=== PATIENT | female | born 1965 | race Caucasian/White ===

== ENCOUNTER 2016-09-18 11:27 | Inpatient (IN) | payer OTHER ==
[~2016-09-18] VITALS: Ht 162.6 cm; Wt 62.3 kg
[2016-09-18] VITALS (10 sets, daily range): BP systolic 100–144; BP diastolic 63–89; PULSE 92–122; RESP 16–18; TEMP 97.6–98.2; O2SAT 92–96
[~2016-09-18 11:27] MED LIST: ALBU0.086 NEB; ALBU2.5I INH; EFFE150C PO; FLON0.053; IPRA0.02 NEB; LEVA500T PO; MEDR4PAK3 PO
--- NOTE | 2016-09-18 11:54 | PD ---
HPI Chief Complaint: Respiratory Symptoms Time Seen by Provider: 11:53 Travel History International Travel<30 days: No Contact w/Intl Traveler<30days: No Traveled to known affect area: No History of Present Illness HPI 51-year-old female came to the emergency room with history of respiratory distress, cough and fever that has been going on for past 1 and a half week. Patient says that she did a course of by mouth Levaquin but symptoms have not improved. She has history of bronchiectasis and has had these symptoms many times in the past. Usually she has ended up requiring IV antibiotics. She said that she is allergic to a number of them and usually only IV Levaquin helps. She took some Tylenol before coming to the emergency room. She looked sick and in distress. Patient was tachycardic and oxygen saturation of 92% on room air. Patient does not take any oxygen at home. FORMERLY [facility] Past Medical History Narrative Medical List of her past medical, surgical, social and family history was reviewed from the nursing note. Arthritis: Yes Asthma: Yes Anxiety: Yes Depression: Yes Heart Rhythm Problems: No Cancer: No Cardiovascular Problems: No High Cholesterol: No Chest Pain: No Congestive Heart Failure: No COPD: Yes (BRONCHIECTASIS) Cerebrovascular Accident: No Diabetes: No Diminished Hearing: No Endocrine: No GERD: No Glaucoma: No Genitourinary: No Hepatitis: No Hiatal Hernia: No Hypertension: No Immune Disorder: Yes (rheumatoid arthritis) Kidney Stones: No Musculoskeletal: No Neurologic: No Psychiatric: No Reproductive: No Respiratory: Yes Migraines: No Pneumonia: Yes Renal Failure: No Seizures: No Sleep Apnea: No Thyroid Disease: No Ulcer: No ?: Not : 3 Para: 3 Tubal Ligation: Yes Past Surgical History Abdominal Surgery: Yes (appendectomy) AICD: No Appendectomy: Yes ( A CHILD) Cardiac Surgery: No Endocrine Surgery: No Eye Surgery: No Genitourinary Surgery: No Gynecologic Surgery: Yes (tubaligaton) Joint Replacement: No Oral Surgery: Yes (tonsillectomy nasal polyps removed 3 times) Pacemaker: No Thoracic Surgery: Yes (bronchoscopy) Other Surgery: Yes (SINUS NASAL POLYPS REMOVED) Social History Alcohol Use: Yes (occ) Tobacco Use: No Substance Use: No Allergies-Medications (Allergen,Severity, Reaction): Coded Allergies: Aspirin (Verified Allergy, Severe, shock, 09/18/16) Cephalosporins (Verified Allergy, Severe, Anaphylaxis, 09/18/16) Erythromycin (Verified Allergy, Severe, Anaphylaxis, 09/18/16) Penicillin (Verified Allergy, Severe, Anaphylaxis, 09/18/16) Sulfa (Verified Allergy, Severe, Anaphylaxis, 09/18/16) Uncoded Allergies: NSAIDS (Allergy, Severe, Anaphylaxis, 08/09/12) Comments List of her allergies reviewed from the nursing note. Reported Meds & Prescriptions Reported Meds & Active Scripts Active Reported Breo Ellipta Inh (Fluticasone/Vilanterol) 100-25 Mcg/Act Inh 1 Puff INH DAILY Use daily at the same time. Albuterol Neb (Albuterol Sulfate) 2.5 Mg/0.5 Ml Neb 2.5 Mg NEB BID Note: The Albuterol Sulfate Inhalation Solution is concentrated and must be diluted. Read complete instructions carefully before using. Ventolin Hfa 18 GM Inh (Albuterol Sulfate) 90 Mcg/Act Aer 2 Puff INH Q4H PRN Flonase Nasal [place] (Fluticasone Nasal [place]) 50 Mcg/Act [place] 50 Mcg EACH NARE BID Effexor XR 24 HR (Venlafaxine HCl) 150 Mg Cap 150 Mg PO DAILY Narrative Medication List of her home medications reviewed from the nursing note. Review of Systems Except as stated in HPI: all other systems reviewed are Neg Physical Exam Narrative GENERAL: Awake, alert, moderate distress SKIN: Warm and dry. HEAD: Atraumatic. Normocephalic. EYES: Pupils equal and round. No scleral icterus. No injection or drainage. ENT: No nasal bleeding or discharge. Mucous membranes pink and moist. NECK: Trachea midline. No JVD. CARDIOVASCULAR: Regular rate and rhythm. No murmur appreciated. RESPIRATORY: Coarse crackles bilaterally with end expiratory wheeze. Mild to moderate respiratory distress with accessory muscles used GASTROINTESTINAL: Abdomen soft, non-tender, nondistended. Hepatic and splenic margins not palpable. MUSCULOSKELETAL: No obvious deformities. No clubbing. No cyanosis. No edema. NEUROLOGICAL: Awake and alert. No obvious cranial nerve deficits. Motor grossly within normal limits. Normal speech. PSYCHIATRIC: Appropriate mood and affect; insight and judgment normal. Data Data Last Documented VS Vital Signs Date Time Temp Pulse Resp B/P Pulse Ox O2 Delivery O2 Flow Rate FiO2 09/18/16 14:05 100 16 111/63 94 Nasal Cannula 1 3/14/17 11:30 98.0 Orders Complete Blood Count With Diff (09/18/16 12:03) Basic Metabolic Panel (Bmp) (09/18/16 12:03) Blood Culture (09/18/16 12:03) Iv Access Insert/Monitor (09/18/16 12:03) Ecg Monitoring (09/18/16 12:03) Oximetry (09/18/16 12:03) Oxygen Administration (09/18/16 12:03) Chest, Single Ap (09/18/16 12:03) Sodium Chloride 0.9% Flush (Ns Flush) (09/18/16 12:15) Methylprednisolone So Succ Inj (Solumedr (09/18/16 12:15) Albuterol-Ipratropium Neb (Duoneb Neb) (09/18/16 12:15) Lactic Acid (09/18/16 12:03) Levofloxacin 500 Mg Premix Inj (Levaquin (09/18/16 12:15) Sodium Chlor 0.9% 1000 Ml Inj (Ns 1000 M (09/18/16 13:57) Sodium Chlor 0.9% 1000 Ml Inj (Ns 1000 M (09/18/16 13:57) Admit Order (Ed Use Only) (09/18/16 14:09) Labs Laboratory Tests Test 09/18/16 13:11 White Blood Count 20.4 TH/MM3 Red Blood Count 4.91 MIL/MM3 Hemoglobin 12.1 GM/DL Hematocrit 38.8 % Mean Corpuscular Volume 78.9 FL Mean Corpuscular Hemoglobin 24.6 PG Mean Corpuscular Hemoglobin 31.2 % Concent Red Cell Distribution Width 17.3 % Platelet Count 451 TH/MM3 Mean Platelet Volume 7.7 FL Neutrophils (%) (Auto) 86.3 % Lymphocytes (%) (Auto) 9.5 % Monocytes (%) (Auto) 2.9 % Eosinophils (%) (Auto) 0.6 % Basophils (%) (Auto) 0.7 % Neutrophils # (Auto) 17.7 TH/MM3 Lymphocytes # (Auto) 1.9 TH/MM3 Monocytes # (Auto) 0.6 TH/MM3 Eosinophils # (Auto) 0.1 TH/MM3 Basophils # (Auto) 0.1 TH/MM3 CBC Comment AUTO DIFF Differential Comment AUTO DIFF CONFIRMED Platelet Estimate NORMAL Platelet Morphology Comment NORMAL Red Cell Morphology Comment NORMAL Sodium Level 141 MEQ/L Potassium Level 3.6 MEQ/L Chloride Level 104 MEQ/L Carbon Dioxide Level 24.7 MEQ/L Anion Gap 12 MEQ/L Blood Urea Nitrogen 15 MG/DL Creatinine 0.61 MG/DL Estimat Glomerular Filtration 104 ML/MIN Rate Random Glucose 94 MG/DL Lactic Acid Level 3.2 mmol/L Calcium Level 8.6 MG/DL MDM Medical Decision Making Medical Screen Exam Complete: Yes Emergency Medical Condition: Yes Medical Record Reviewed: Yes Differential Diagnosis Pneumonia, COPD exacerbation, bronchitis Narrative Course 12:36 PM patient has been ordered for nebs 3 and IV Solu-Medrol. Have ordered IV Levaquin and blood tests and chest x-ray. Waiting for these to be done and I will reassess her. 1:24 PM x-ray shows multiple right sided consolidation with possible cavitary lesions. Awaiting for the blood test. Patient will require admission. I was told by the nurse that patient had her flu test done at her doctor's office this morning which was negative. I've canceled our influenza test here that I had ordered. 1:59 PM blood test results are back and white count is significantly elevated with a left shift and lactic acid is elevated as well. Patient was ordered IV fluid as per the sepsis protocol. Awaiting for the admitting physician to call back for admission. Critical Care Narrative Aggregate critical care time was 45 minutes. Time to perform other separately billable procedures was not included in the critical care time. My time did not include minutes spent treating any other patients simultaneously or on activities that did not directly contribute to the patient's treatment. The services I provided to this patient were to treat and/or prevent clinically significant deterioration that could result in: Respiratory distress, hypoxia, pneumonia, sepsis I provided critical care services requiring my management, as noted below: Chart data review, documentation time, medication orders and management, vital sign assessments/reviewing monitor data, ordering and reviewing lab tests, ordering and interpreting/reviewing x-rays and diagnostic studies, care of the patient and discussion of the patient with the admitting physicians. Procedures EKG Prior to Arrival: No Sepsis Criteria SIRS Criteria (2 or more): Heart rate over 90, WBC > 05230, < 4000 or > 10% bands Sepsis Criteria (SIRS+source): Infect source susp/known Severe Sepsis (+one): Lactate >2 Diagnosis Primary Impression: Sepsis Qualified Code: A41.9 - Sepsis, due to unspecified organism Additional Impressions: Pneumonia Qualified Code: J18.9 - Pneumonia of right lung due to infectious organism, unspecified part of lung Respiratory distress Admitting Information Admitting Physician Requests: it Candelario Solano MD Sep 18, 2016 11:54
[2016-09-18] MEDS ORDERED: methylPREDNISolone SOD SUCC 125 MG/2 ML VIAL IVP ONE (12:15)
[2016-09-18] MEDS ORDERED: LEVOFLOXACIN 500 MG PREMIX INJ 100 ML IV ONE (12:15)
[2016-09-18] MEDS ORDERED: SODIUM CHLORIDE 0.9% FLUSH 5 ML FLUSH IVF PRN (12:15)
[2016-09-18] MEDS: RESP: ALBUTEROL 2.5 MG/IPRATROPIUM 0.5 MG NEB (SCH) INH (12:30)
--- NOTE | 2016-09-18 13:03 | RADHPO ---
EXAM DATE/TIME: 09/18/2016 12:40 [place] COMPARISON: CHEST PA & LAT, November 14, 2015, 19:09. INDICATIONS: Short of breath. MEDICAL HISTORY: Chronic obstructive pulmonary disease. SURGICAL HISTORY: None. ENCOUNTER: Initial ACUITY: 2 weeks PAIN SCORE: 0/10 LOCATION: Bilateral chest FINDINGS: The heart size is normal. There is some patchy density seen at the lateral right upper lung. There is also some patchy density identified at the right mid and lower lung. There is some questionable c avitary change at the right base. There is some cavitary change in the right upper lung. The left u pper lung appears grossly clear. Significant effusion is not clearly seen. CONCLUSION: Patchy areas of consolidation and possible cavitary changes throughout the right lung. Sunil Dong MD on September 18, 2016 at 12:55 Board Certified Radiologist. This report was verified electronically.
[2016-09-18] MEDS ORDERED: FLUT1SPR5 EACH NARE (13:10)
[2016-09-18] MEDS ORDERED: VENTAER INH (13:10)
[2016-09-18] MEDS ORDERED: FLUT1INH INH (13:10)
[2016-09-18] MEDS ORDERED: ALBU.5I NEB (13:10)
[2016-09-18] MEDS ORDERED: EFFE150C PO (13:10)
[2016-09-18 13:33] LABS: AUTOMATED NEUTROPHIL # 17.7 TH/MM3 (1.8-7.7); BASOPHIL # 0.1 TH/MM3 (0-0.2); BASOPHIL % 0.7 % (0.0-2.0); EOSINOPHIL # 0.1 TH/MM3 (0-0.4); EOSINOPHIL % 0.6 % (0.0-4.0); HEMATOCRIT 38.8 % (35.0-46.0); LYMPH % 9.5 % (9.0-44.0); LYMPHOCYTE # 1.9 TH/MM3 (1.0-4.8); MEAN CELL VOLUME 78.9 FL (80.0-100.0); MEAN CORPUSCULAR HEMOGLOBIN 24.6 PG (27.0-34.0); MEAN CORPUSCULAR HGB CONC 31.2 % (32.0-36.0); MONO % 2.9 % (0.0-8.0); NEUT % 86.3 % (16.0-70.0); PLATELET COUNT 451 TH/MM3 (150-450); RED BLOOD COUNT 4.91 MIL/MM3 (4.00-5.30); RED CELL DISTRIBUTION WIDTH 17.3 % (11.6-17.2); WHITE BLOOD COUNT 20.4 TH/MM3 (4.0-11.0)
[2016-09-18 13:34] LABS: HEMO FLAGS AUTO DIFF
[2016-09-18 13:39] LABS: POTASSIUM 3.6 MEQ/L (3.5-5.1)
[2016-09-18 13:42] LABS: BICARBONATE 24.7 MEQ/L (21.0-32.0)
[2016-09-18] MEDS ORDERED: SODIUM CHLOR 0.9% 1000 ML INJ 800 ML IV ONE (13:57)
[2016-09-18] MEDS ORDERED: SODIUM CHLOR 0.9% 1000 ML INJ 1,000 ML IV ONE (13:57)
[2016-09-18 14:03] LABS: PLATELET ESTIMATE SMEAR NORMAL (NORMAL); PLATELET MORPHOLOGY NORMAL (NORMAL); SCAN/DIFF AUTO DIFF CONFIRMED
[2016-09-18] MEDS ORDERED: ACETAMINOPHEN 325 MG TAB PO PRN (14:30)
[2016-09-18] MEDS ORDERED: NALOXONE HCL 0.4 MG/ML AMP IV PRN (14:30)
[2016-09-18] MEDS ORDERED: ONDANSETRON HCL 4 MG/2 ML VIAL IVP PRN (14:30)
[2016-09-18] MEDS ORDERED: SODIUM CHLORIDE 0.9% FLUSH 5 ML FLUSH FLUSH PRN (14:30)
--- NOTE | 2016-09-18 14:30 | HHI.HP ---
[facility] Service [facility] Primary Care Physician Clementine Montgomery MD Admission Diagnosis sepsis, pneumonia, respiratory distress Diagnoses: (1) Severe sepsis (2) Pneumonia (3) Bronchiectasis Chief Complaint: coough production sputum Travel History International Travel<30 Days: No Contact w/Intl Traveler <30 Da: No Traveled to Known Affected Are: No Sepsis Criteria SIRS Criteria (2 or more): Heart rate over 90, WBC > 22442, < 4000 or > 10% bands Sepsis Criteria (SIRS+source): Infect source susp/known Severe Sepsis (+one): Lactate >2 Criteria Outcome: Meets sepsis criteria History of Present Illness 51 year-old female with a history of bronchiectasis and recurrent pneumonia came to the ED for evaluation of SOB/respiratory distress and cough production of brown sputum x 1 week duration along with febrile episode. Patient states, she completed a ten-day course of by mouth Levaquin 09/16/16 and a 5 day course of Medrol pack 09/11/16. She recently returned from a road trip on 09/16/16 after a weekend in [place]. Prior to coming to the ED patient reported febrile episode for which she took Tylenol. Chest x-ray finding of patchy area of consolidation and patient will elevated WBC. She was tachycardic with oxygen saturation 92% on room air arrival in the ED. She denies any GI bleed, hemoptysis, hematuria. Review of Systems Other 12 systems reviewed and are negative except for the ones mentioned in history of present illness Past Family Social History Past Medical History Bronchiectasis Asthma for 20 years Depression which is controlled well Recurrent pneumonia Restless leg syndrome, that has resolved. Rheumatoid arthritis Past Surgical History Bilateral sinus surgery apparently twice Bilateral tubal ligation Tonsillectomy Appendectomy Reported Medications Breo Ellipta Inh (Fluticasone/Vilanterol) 100-25 Mcg/Act Inh 1 Puff INH DAILY Use daily at the same time. Albuterol Neb (Albuterol Sulfate) 2.5 Mg/0.5 Ml Neb 2.5 Mg NEB BID Note: The Albuterol Sulfate Inhalation Solution is concentrated and must be diluted. Read complete instructions carefully before using. Ventolin Hfa 18 GM Inh (Albuterol Sulfate) 90 Mcg/Act Aer 2 Puff INH Q4H PRN Flonase Nasal [place] (Fluticasone Nasal [place]) 50 Mcg/Act [place] 50 Mcg EACH NARE BID Effexor XR 24 HR (Venlafaxine HCl) 150 Mg Cap 150 Mg PO DAILY Allergies: Coded Allergies: Aspirin (Verified Allergy, Severe, shock, 09/18/16) Cephalosporins (Verified Allergy, Severe, Anaphylaxis, 09/18/16) Erythromycin (Verified Allergy, Severe, Anaphylaxis, 09/18/16) Penicillin (Verified Allergy, Severe, Anaphylaxis, 09/18/16) Sulfa (Verified Allergy, Severe, Anaphylaxis, 09/18/16) Uncoded Allergies: NSAIDS (Allergy, Severe, Anaphylaxis, 08/09/12) Family History Mother has diabetes. Father had CAD requiring CABG. Social History She has never been a smoker. 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 Physical Exam Vital Signs Vital Signs Date Time Temp Pulse Resp B/P Pulse Ox O2 Delivery O2 Flow Rate FiO2 09/18/16 12:10 97 16 94 Room Air 09/18/16 12:05 94 Room Air 09/18/16 12:05 16 94 Room Air 09/18/16 11:30 98.0 110 16 133/89 92 Physical Exam GENERAL: This is a well-nourished, well-developed patient, in no apparent distress. SKIN: No rashes, ecchymoses or lesions. Cool and dry. HEAD: Atraumatic. Normocephalic. No temporal or scalp tenderness. EYES: Pupils equal round and reactive. Extraocular motions intact. No scleral icterus. No injection or drainage. ENT: Nose without bleeding, purulent drainage or septal hematoma. Throat without erythema, tonsillar hypertrophy or exudate. Uvula midline. Airway patent. NECK: Trachea midline. No JVD or lymphadenopathy. Supple, nontender, no meningeal signs. CARDIOVASCULAR: Regular rate and rhythm without murmurs, gallops, or rubs. RESPIRATORY: Clear to auscultation. Breath sounds equal bilaterally. No wheezes , rales, or rhonchi. GASTROINTESTINAL: Abdomen soft, non-tender, nondistended. No hepato-splenomegaly , or palpable masses. No guarding. MUSCULOSKELETAL: Extremities without clubbing, cyanosis, or edema. No joint tenderness, effusion, or edema noted. No calf tenderness. Negative Homans sign bilaterally. NEUROLOGICAL: Awake and alert. Cranial nerves II through XII intact. Motor and sensory grossly within normal limits. Five out of 5 muscle strength in all muscle groups. Normal speech. Laboratory Laboratory Tests Test 09/18/16 13:11 White Blood Count 20.4 Red Blood Count 4.91 Hemoglobin 12.1 Hematocrit 38.8 Mean Corpuscular Volume 78.9 Mean Corpuscular Hemoglobin 24.6 Mean Corpuscular Hemoglobin 31.2 Concent Red Cell Distribution Width 17.3 Platelet Count 451 Mean Platelet Volume 7.7 Neutrophils (%) (Auto) 86.3 Lymphocytes (%) (Auto) 9.5 Monocytes (%) (Auto) 2.9 Eosinophils (%) (Auto) 0.6 Basophils (%) (Auto) 0.7 Neutrophils # (Auto) 17.7 Lymphocytes # (Auto) 1.9 Monocytes # (Auto) 0.6 Eosinophils # (Auto) 0.1 Basophils # (Auto) 0.1 CBC Comment AUTO DIFF Differential Comment AUTO DIFF CONFIRMED Platelet Estimate NORMAL Platelet Morphology Comment NORMAL Red Cell Morphology Comment NORMAL Sodium Level 141 Potassium Level 3.6 Chloride Level 104 Carbon Dioxide Level 24.7 Anion Gap 12 Blood Urea Nitrogen 15 Creatinine 0.61 Estimat Glomerular Filtration 104 Rate Random Glucose 94 Lactic Acid Level 3.2 Calcium Level 8.6 Date/Time Procedure Status Source Growth 09/18/16 13:11 Aerobic Blood Culture Received Blood Peripheral Pending 09/18/16 13:11 Anaerobic Blood Culture Received Blood Peripheral Pending Result Diagram: 09/18/16 1311 09/18/16 1311 Assessment and Plan Problem List: (1) Severe sepsis ICD Code: A41.9 Status: Acute (2) Pneumonia ICD Code: J18.9 Status: Acute (3) Bronchiectasis ICD Code: J47.9 Status: Chronic Assessment and Plan 51-year-old female with Severe sepsis: Meets sepsis criteria, Heart rate over 90, WBC > 36647, < 4000 or > 10% bands, Lactate >2. Source from Pneumonia. S/p Levaquin IV 500mg x 1 in the ED. Will start Levaquin 750mg IV daily on 09/19/16. Will check Flu A and B as well as urinary pneumococcal and Legionella antigens pending culture report Community-acquired pneumonia: Chest x-ray noted and reviewed with finding of patchy area of consolidations; continue with Levaquin IV 750mg daily Bronchiectasis:Resume Breo and start DuoNeb scheduled and PRN as well as Solu Medrol 40mg IV Q12H; Patient received Solu Medrol 125mg IV x 1 in the ED. Start Mucinex Anxiety: Resume Effexor DVT prophylaxis: B-SCDs Code Status Full code Discussed Condition With Patient, , ED physician Physician Certification 2 Midnight Certification Type: Admission for Inpatient Services Order for Inpatient Services The services are ordered in accordance with Medicare regulations or non- Medicare payer requirements, as applicable. In the case of services not specified as inpatient-only, they are appropriately provided as inpatient services in accordance with the 2-midnight benchmark. Estimated LOS (days): 2 days is the estimated time the patient will need to remain in the hospital, assuming treatment plan goals are met and no additional complications. Post-Hospital Plan: Not yet determined Problem Qualifiers (1) Pneumonia: Qualified Code: J18.9 - Pneumonia of right lung due to infectious organism, unspecified part of lung Antony Momin MD Sep 18, 2016 14:30
[2016-09-18] MEDS: ACETAMINOPHEN 325 MG TAB PO PRN (17:35)
[2016-09-18] MEDS: RESP: ALBUTEROL 2.5 MG/IPRATROPIUM 0.5 MG NEB (SCH) NEB (19:23)
[2016-09-18] MEDS: LACTOBACILLUS ACIDOPHILUS TAB PO SCH (21:45)
[2016-09-18] MEDS: TEMAZEPAM 15 MG CAP PO PRN (21:45)
[2016-09-18] MEDS: methylPREDNISolone SOD SUCC 40 MG/1 ML VIAL IV PUSH SCH (21:45)
[2016-09-18] MEDS: guaiFENesin E.R. 600 MG TAB PO SCH (21:45)
[2016-09-18] MEDS: SODIUM CHLORIDE 0.9% FLUSH 5 ML FLUSH FLUSH SCH (21:45)
[2016-09-19] VITALS (7 sets, daily range): BP systolic 94–142; BP diastolic 62–74; PULSE 80–102; RESP 16–21; TEMP 96.4–97.3; O2SAT 92–95
[2016-09-19 06:37] LABS: AUTOMATED NEUTROPHIL # 14.3 TH/MM3 (1.8-7.7); EOSINOPHIL % 0.1 % (0.0-4.0); HEMATOCRIT 31.4 % (35.0-46.0); LYMPH % 5.2 % (9.0-44.0); LYMPHOCYTE # 0.8 TH/MM3 (1.0-4.8); MEAN CELL VOLUME 77.9 FL (80.0-100.0); MEAN CORPUSCULAR HEMOGLOBIN 25.6 PG (27.0-34.0); MEAN CORPUSCULAR HGB CONC 32.8 % (32.0-36.0); MONO % 1.3 % (0.0-8.0); NEUT % 93.4 % (16.0-70.0); PLATELET COUNT 435 TH/MM3 (150-450); RED BLOOD COUNT 4.03 MIL/MM3 (4.00-5.30); RED CELL DISTRIBUTION WIDTH 16.9 % (11.6-17.2); WHITE BLOOD COUNT 15.3 TH/MM3 (4.0-11.0)
[2016-09-19 06:40] LABS: CHLORIDE 108 MEQ/L (98-107); POTASSIUM 4.1 MEQ/L (3.5-5.1); SODIUM (NA) 143 MEQ/L (136-145)
[2016-09-19 06:48] LABS: HEMO FLAGS DIFF FINAL
[2016-09-19 06:49] LABS: ANION GAP 9 MEQ/L (5-15); BICARBONATE 25.8 MEQ/L (21.0-32.0); BLOOD UREA NITROGEN 15 MG/DL (7-18)
[2016-09-19 06:51] LABS: ALT (GPT) 25 U/L (10-53)
[2016-09-19 06:52] LABS: AST (GOT) 10 U/L (15-37); GLOMERULAR FILTRATION RATE 122 ML/MIN (>89)
--- NOTE | 2016-09-19 06:52 | HHI.PR ---
Subjective Remarks Still coughing. She states her breathing is stable. She was admitted to [facility] medical service yesterday and when it was found out she was a [facility] plan patient I was called this morning to follow her. Admission note was done by [facility] physician. Objective Vitals Vital Signs Date Time Temp Pulse Resp B/P Pulse Ox O2 Delivery O2 Flow Rate FiO2 09/19/16 00:00 96.5 80 16 94/62 92 09/18/16 20:00 94 Nasal Cannula 1.00 09/18/16 20:00 97.6 92 16 100/63 94 09/18/16 19:22 92 Nasal Cannula 1.00 09/18/16 16:00 98.2 96 18 113/68 96 09/18/16 15:05 98 16 123/70 94 Nasal Cannula 1 09/18/16 15:00 95 Nasal Cannula 1.00 09/18/16 14:15 16 94 Nasal Cannula 1 09/18/16 14:05 100 16 111/63 94 Nasal Cannula 1 09/18/16 13:05 122 16 127/75 93 Nasal Cannula 1 09/18/16 12:15 116 16 144/87 93 1 09/18/16 12:10 97 16 94 Room Air 09/18/16 12:05 94 Room Air 09/18/16 12:05 16 94 Room Air 09/18/16 11:30 98.0 110 16 133/89 92 09/18/16 09/18/16 09/19/16 15:00 23:00 07:00 Intake Total 100 ml 2040 ml 180 ml Balance 100 ml 2040 ml 180 ml Intake Oral 240 ml 180 ml IV Total 100 ml 1800 ml # Voids 1 1 # Bowel Movements 0 0 Result Diagram: 09/18/16 1311 09/19/16 0501 Other Results Lab today pending. Laboratory Tests Test 09/18/16 09/18/16 09/19/16 13:11 17:00 05:01 White Blood Count 20.4 TH/MM3 Red Blood Count 4.91 MIL/MM3 Hemoglobin 12.1 GM/DL Hematocrit 38.8 % Mean Corpuscular Volume 78.9 FL Mean Corpuscular Hemoglobin 24.6 PG Mean Corpuscular Hemoglobin 31.2 % Concent Red Cell Distribution Width 17.3 % Platelet Count 451 TH/MM3 Mean Platelet Volume 7.7 FL Neutrophils (%) (Auto) 86.3 % Lymphocytes (%) (Auto) 9.5 % Monocytes (%) (Auto) 2.9 % Eosinophils (%) (Auto) 0.6 % Basophils (%) (Auto) 0.7 % Neutrophils # (Auto) 17.7 TH/MM3 Lymphocytes # (Auto) 1.9 TH/MM3 Monocytes # (Auto) 0.6 TH/MM3 Eosinophils # (Auto) 0.1 TH/MM3 Basophils # (Auto) 0.1 TH/MM3 CBC Comment AUTO DIFF Differential Comment AUTO DIFF CONFIRMED Platelet Estimate NORMAL Platelet Morphology Comment NORMAL Red Cell Morphology Comment NORMAL Sodium Level 141 MEQ/L 143 MEQ/L Potassium Level 3.6 MEQ/L 4.1 MEQ/L Chloride Level 104 MEQ/L 108 MEQ/L Carbon Dioxide Level 24.7 MEQ/L Anion Gap 12 MEQ/L Blood Urea Nitrogen 15 MG/DL Creatinine 0.61 MG/DL Estimat Glomerular Filtration 104 ML/MIN Rate Random Glucose 94 MG/DL Lactic Acid Level 3.2 mmol/L 1.3 mmol/L Calcium Level 8.6 MG/DL Imaging Last Impressions Chest X-Ray 09/18/16 1203 Signed Impressions: Service Date/Time: Sunday, September 18, 2016 12:40 - CONCLUSION: Patchy areas of consolidation and possible cavitary changes throughout the right lung. Sunil Dong MD Objective Remarks Exam: Pleasant female in no distress HEENT: pupils equal, no scleral icterus, mouth negative Neck: No JVD Heart: RRR with no murmurs Lungs: Rhonchi right base and occasional wheezing throughout Abdomen: Soft, nontender, no masses Extremities: No edema Neuro: Negative A/P Assessment and Plan Assessment: --Pneumonia--patient has multiple drug allergies to antibiotics (penicillins, cephalosporins; sulfa) --Bronchiectasis --Sepsis--Her WBC was 20,000 yesterday but some of that could have been from outpatient steroid use --Asthma Plan: Consult infectious disease for appropriate antibiotic choice. Patient was started on Levaquin by the [facility] physician yesterday, however she had just completed a 10 day course of it on 09-16-16. Continue nebulizer treatments and Solu-Medrol.. Continue SCD's/ADAM hose for DVT prophylaxis. Mike Hopkins MD Sep 19, 2016 06:52
[2016-09-19 06:53] LABS: TOTAL BILIRUBIN ADULT 0.3 MG/DL (0.2-1.0)
[2016-09-19 06:54] LABS: ALKALINE PHOSPHATASE 97 U/L (45-117)
[2016-09-19] MEDS: RESP: ALBUTEROL 2.5 MG/IPRATROPIUM 0.5 MG NEB (SCH) NEB ×3 (07:28→19:15)
[2016-09-19] MEDS: ACETAMINOPHEN/HYDROcodone 325 MG/5 MG TAB PO PRN (09:28)
[2016-09-19] MEDS: LACTOBACILLUS ACIDOPHILUS TAB PO SCH ×2 (09:28→21:07)
[2016-09-19] MEDS: guaiFENesin E.R. 600 MG TAB PO SCH ×2 (09:29→21:08)
[2016-09-19] MEDS: VENLAFAXINE HCL XR 75 MG CAP PO SCH (09:29)
[2016-09-19] MEDS: FLUTICASONE 100 MCG/VILANTEROL 25 MCG INHALER INH SCH (09:30)
[2016-09-19] MEDS: SODIUM CHLORIDE 0.9% FLUSH 5 ML FLUSH FLUSH SCH ×2 (09:31→21:09)
[2016-09-19] MEDS: methylPREDNISolone SOD SUCC 40 MG/1 ML VIAL IV PUSH SCH ×2 (09:31→21:09)
[2016-09-19] MEDS ORDERED: LEVOFLOXACIN 750 MG PREMIX INJ 150 ML IV SCH (13:00)
[2016-09-19] MEDS: ACETAMINOPHEN 325 MG TAB PO PRN (13:23)
[2016-09-19] MEDS: AZTREONAM INJ 1,000 MG in SODIUM CHLORIDE 0.9% INJ 100 ML IV SCH ×2 (13:32→22:44)
--- NOTE | 2016-09-19 17:02 | PD.CONS ---
History of Present Illness Service Infectious disease Consult Requested By Dr Aria Hopkins Reason for Consult Evaluate patient with pneumonia, bronchiectasis, has multiple antibiotic allergies Primary Care Physician Clementine Montgomery MD Diagnoses: History of Present Illness Patient seen and examined. Records reviewed. Patient is a 51-year-old female, with known bronchiectasis, admitted to the hospital for evaluation of shortness of breath. Patient apparently has been having congestion and cough probably over the last 10 days or so. She has had previous problem with infections and usually her blueprinter will give her Levaquin and her symptoms would improve. She was given Levaquin about 10 days ago, as well as a Medrol Dosepak. However her symptoms did not improved and this weekend which would be about for 5 days ago she started getting shortness of breath, and she had episodes of fever. She is bringing up a lot of sputum and they're colored grayish and yellowish at times. Her shortness of breath was not improving so she presented to the hospital for further evaluation and treatment. Admission she has not been febrile. Her WBC is elevated. Today patient states she feels better as far as her shortness of breath. Chest x-ray showed infiltrates on the right lung with some suggestion of cavitary lesions in the lower lung field. The last time she had hospitalization was last year and she had bilateral infiltrates at that time. Patient has multiple antibiotic allergies and states that her reactions of been anaphylaxis. Infectious disease consultation has been requested to evaluate the patient. Review of Systems Constitutional: COMPLAINS OF: Fever, Chills Eyes: DENIES: Eye pain Ears, nose, mouth, throat: DENIES: Nasal discharge, Oral lesions, Throat pain, Ear Pain, Running Nose Respiratory: COMPLAINS OF: Cough, Wheezing, Sputum production, Shortness of breath Cardiovascular: DENIES: Chest pain, Palpitations, Syncope Gastrointestinal: DENIES: Abdominal pain, Diarrhea, Nausea, Vomiting Genitourinary: DENIES: Urinary frequency, Dysuria Musculoskeletal: DENIES: Joint pain, Joint Swelling Integumentary: DENIES: Rash Neurologic: DENIES: Headache Psychiatric: DENIES: Confusion, Hallucinations Past Family Social History Allergies: Coded Allergies: Aspirin (Verified Allergy, Severe, shock, 09/18/16) Cephalosporins (Verified Allergy, Severe, Anaphylaxis, 09/18/16) Erythromycin (Verified Allergy, Severe, Anaphylaxis, 09/18/16) Penicillin (Verified Allergy, Severe, Anaphylaxis, 09/18/16) Sulfa (Verified Allergy, Severe, Anaphylaxis, 09/18/16) Uncoded Allergies: NSAIDS (Allergy, Severe, Anaphylaxis, 08/09/12) Past Medical History Bronchiectasis Asthma for 20 years Depression which is controlled well Recurrent pneumonia Restless leg syndrome, that has resolved. Rheumatoid arthritis Past Surgical History Bilateral sinus surgery apparently twice Bilateral tubal ligation Tonsillectomy Appendectomy Active Ordered Medications Tylenol [place] Albuterol Azactam Mucinex Lactinex Levaquin Solu-Medrol Zofran Restoril Effexor Social History She has never been a smoker. 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 Physical Exam Vital Signs Vital Signs Date Time Temp Pulse Resp B/P Pulse Ox O2 Delivery O2 Flow Rate FiO2 09/19/16 16:00 96.4 100 18 113/74 94 09/19/16 12:00 97.1 88 18 96/69 95 09/19/16 08:00 97.3 95 18 119/72 94 09/19/16 08:00 Nasal Cannula 1.00 09/19/16 07:28 92 Nasal Cannula 1.00 09/19/16 00:00 96.5 80 16 94/62 92 09/18/16 20:00 94 Nasal Cannula 1.00 09/18/16 20:00 97.6 92 16 100/63 94 09/18/16 19:22 92 Nasal Cannula 1.00 Physical Exam GENERAL: This is a well-nourished, well-developed female, awake and alert, in no apparent distress. SKIN: Cool and dry. No generalized rash or ecchymosis. HEAD: Atraumatic. Normocephalic. No temporal or scalp tenderness. EYES: [place] conjunctivae. Pupils equal round and reactive. Extraocular motions intact. No scleral icterus. No injection or drainage. ENT: Nose without bleeding, or purulent drainage. Moist oral mucosa, no oral thrush. Throat without erythema, tonsillar hypertrophy or exudate. Uvula midline. Airway patent. NECK: Trachea midline. No JVD or lymphadenopathy. Supple, nontender, no meningeal signs. CARDIOVASCULAR: Regular rate and rhythm without murmurs, gallops, or rubs. RESPIRATORY: Decreased breath sounds on the left side. She has scattered rhonchi and rales on the right side. Increased vocal fremitus on the whole right lung, with E to A changes GASTROINTESTINAL: Abdomen soft, non-tender, nondistended. Bowel sounds are present and normoactive. No organomegaly. No guarding. MUSCULOSKELETAL: Extremities without clubbing, cyanosis, or edema. No joint tenderness, effusion, or edema noted. No calf tenderness. Negative Homans sign bilaterally. NEUROLOGICAL: Awake and alert. Cranial nerves II through XII intact. Motor and sensory grossly within normal limits. Normal speech. PSYCH: Normal affect, calm and cooperative LINE: PIV with no evidence of infection Laboratory Laboratory Tests Test 09/18/16 09/19/16 17:00 05:01 Lactic Acid Level 1.3 White Blood Count 15.3 Red Blood Count 4.03 Hemoglobin 10.3 Hematocrit 31.4 Mean Corpuscular Volume 77.9 Mean Corpuscular Hemoglobin 25.6 Mean Corpuscular Hemoglobin 32.8 Concent Red Cell Distribution Width 16.9 Platelet Count 435 Mean Platelet Volume 7.4 Neutrophils (%) (Auto) 93.4 Lymphocytes (%) (Auto) 5.2 Monocytes (%) (Auto) 1.3 Eosinophils (%) (Auto) 0.1 Basophils (%) (Auto) 0.0 Neutrophils # (Auto) 14.3 Lymphocytes # (Auto) 0.8 Monocytes # (Auto) 0.2 Eosinophils # (Auto) 0.0 Basophils # (Auto) 0.0 CBC Comment DIFF FINAL Differential Comment Sodium Level 143 Potassium Level 4.1 Chloride Level 108 Carbon Dioxide Level 25.8 Anion Gap 9 Blood Urea Nitrogen 15 Creatinine 0.53 Estimat Glomerular Filtration 122 Rate Random Glucose 131 Calcium Level 8.2 Total Bilirubin 0.3 Aspartate Amino Transf 10 (AST/SGOT) Alanine Aminotransferase 25 (ALT/SGPT) Alkaline Phosphatase 97 Total Protein 6.8 Albumin 2.4 Date/Time Procedure Status Source Growth 09/18/16 18:35 Legionella Antigen - Final Complete Urine Clean Catch PRESUMPTIVE NEGATIVE FOR LEGIONELLA P... 09/18/16 18:35 Streptococcus pneumoniae Antigen (M - Final Complete Urine Clean Catch PRESUMPTIVE NEGATIVE FOR STREPTOCOCCU... 09/18/16 13:11 Aerobic Blood Culture - Preliminary Resulted Blood Peripheral NO GROWTH IN 1 DAY 09/18/16 13:11 Anaerobic Blood Culture - Preliminary Resulted Blood Peripheral NO GROWTH IN 1 DAY Result Diagram: 09/19/16 0501 09/19/16 0501 Imaging RADIOLOGY STUDIES/FILMS REVIEWED Chest X-Ray 09/18/16 1203 Signed Impressions: Service Date/Time: Sunday, September 18, 2016 12:40 - CONCLUSION: Patchy areas of consolidation and possible cavitary changes throughout the right lung. Sunil Dong MD Assessment and Plan Assessment and Plan IMPRESSION Community-acquired pneumonia, patient with underlying bronchiectasis Rheumatoid arthritis Multiple antibiotic allergies some reaction severe with anaphylaxis RECOMMENDATION Get sputum Gram stain and culture CT of the chest Continue Azactam Change Levaquin to doxycycline Follow cultures Monitor progress I will determine course of antibiotics once workup is completed I will follow along with you Thank you for this consultation Discussed Condition With Explained plan to the patient Christina Sethi MD Sep 19, 2016 17:02
--- NOTE | 2016-09-19 18:08 | RADHPO ---
EXAM DATE/TIME: 09/19/2016 17:06 [place] COMPARISON: No previous studies available for comparison. INDICATIONS : Shortness of breath with cough. RADIATION DOSE: 6.40 CTDIvol (mGy) MEDICAL HISTORY : Chronic obstructive pulmonary disease. Rheumatoid arthritis. SURGICAL HISTORY : None. ENCOUNTER: Initial ACUITY: 1 day PAIN SCALE: 0/10 LOCATION: Chest TECHNIQUE: Volumetric scanning of the chest was performed. Using automated exposure control and adjustment of the mA and/or kV according to patient size, radiation dose was kept as low as reasonab ly achievable to obtain optimal diagnostic quality images. FINDINGS: There is patchy consolidation seen throughout the right upper lung and in areas in the lower lobes bilaterally. No cavitation is seen. There are some mildly prominent lymph nodes in the m ediastinum in the precarinal area. No effusion is seen. The bony structures are grossly intact. CONCLUSION: Areas of consolidation throughout the right upper lung and in the lower lobes bilater ally likely representing areas of inflammatory change and infection. There is some mildly prominent l ymph nodes seen in the precarinal area. Sunil Dong MD on September 19, 2016 at 17:55 Board Certified Radiologist. This report was verified electronically.
[2016-09-19] MEDS: DOXYCYCLINE HYCLATE 100 MG TAB PO SCH (21:08)
[2016-09-19] MEDS: TEMAZEPAM 15 MG CAP PO PRN (23:00)
[2016-09-20] VITALS (7 sets, daily range): BP systolic 116–135; BP diastolic 70–85; PULSE 79–101; RESP 18–20; TEMP 96.2–98; O2SAT 92–97
[2016-09-20] MEDS: AZTREONAM INJ 1,000 MG in SODIUM CHLORIDE 0.9% INJ 100 ML IV SCH ×3 (05:40→21:21)
[2016-09-20 06:16] LABS: POTASSIUM 4.6 MEQ/L (3.5-5.1)
[2016-09-20 06:26] LABS: AUTOMATED NEUTROPHIL # 16.4 TH/MM3 (1.8-7.7); BASOPHIL % 0.1 % (0.0-2.0); LYMPH % 5.5 % (9.0-44.0); MEAN CELL VOLUME 77.7 FL (80.0-100.0); MEAN CORPUSCULAR HEMOGLOBIN 25.2 PG (27.0-34.0); MEAN CORPUSCULAR HGB CONC 32.4 % (32.0-36.0); MONO % 3.4 % (0.0-8.0); PLATELET COUNT 507 TH/MM3 (150-450); RED BLOOD COUNT 4.11 MIL/MM3 (4.00-5.30); RED CELL DISTRIBUTION WIDTH 17.1 % (11.6-17.2)
[2016-09-20 06:27] LABS: HEMO FLAGS DIFF FINAL
--- NOTE | 2016-09-20 06:29 | HHI.PR ---
Subjective Remarks Still coughing. Her antibiotics were changed to Doxycycline and Aztreonam and Levaquin was stopped. No shortness of breath. Objective Vitals Vital Signs Date Time Temp Pulse Resp B/P Pulse Ox O2 Delivery O2 Flow Rate FiO2 09/20/16 00:00 96.6 101 20 116/78 95 09/19/16 20:00 96.6 102 21 142/71 92 09/19/16 19:50 Nasal Cannula 1.00 09/19/16 19:15 93 Nasal Cannula 1.00 09/19/16 16:00 96.4 100 18 113/74 94 09/19/16 12:00 97.1 88 18 96/69 95 09/19/16 08:00 97.3 95 18 119/72 94 09/19/16 08:00 Nasal Cannula 1.00 09/19/16 07:28 92 Nasal Cannula 1.00 09/19/16 09/19/16 09/20/16 15:00 23:00 07:00 Intake Total 840 ml 240 ml 240 ml Balance 840 ml 240 ml 240 ml Intake Oral 840 ml 240 ml 240 ml # Voids 1 2 1 # Bowel Movements 0 0 0 Result Diagram: 09/19/16 0501 09/20/16 0545 Other Results Laboratory Tests Test 09/18/16 09/18/16 09/19/16 09/20/16 13:11 17:00 05:01 05:45 Platelet Estimate NORMAL Platelet Morphology Comment NORMAL Red Cell Morphology Comment NORMAL Lactic Acid Level 1.3 mmol/L White Blood Count 15.3 TH/MM3 Red Blood Count 4.03 MIL/MM3 Hemoglobin 10.3 GM/DL Hematocrit 31.4 % Mean Corpuscular Volume 77.9 FL Mean Corpuscular Hemoglobin 25.6 PG Mean Corpuscular Hemoglobin 32.8 % Concent Red Cell Distribution Width 16.9 % Platelet Count 435 TH/MM3 Mean Platelet Volume 7.4 FL Neutrophils (%) (Auto) 93.4 % Lymphocytes (%) (Auto) 5.2 % Monocytes (%) (Auto) 1.3 % Eosinophils (%) (Auto) 0.1 % Basophils (%) (Auto) 0.0 % Neutrophils # (Auto) 14.3 TH/MM3 Lymphocytes # (Auto) 0.8 TH/MM3 Monocytes # (Auto) 0.2 TH/MM3 Eosinophils # (Auto) 0.0 TH/MM3 Basophils # (Auto) 0.0 TH/MM3 CBC Comment DIFF FINAL Differential Comment Total Bilirubin 0.3 MG/DL Aspartate Amino Transf 10 U/L (AST/SGOT) Alanine Aminotransferase 25 U/L (ALT/SGPT) Alkaline Phosphatase 97 U/L Total Protein 6.8 GM/DL Albumin 2.4 GM/DL Sodium Level 144 MEQ/L Potassium Level 4.6 MEQ/L Chloride Level 109 MEQ/L Carbon Dioxide Level 27.0 MEQ/L Anion Gap 8 MEQ/L Blood Urea Nitrogen 22 MG/DL Creatinine 0.63 MG/DL Estimat Glomerular Filtration 100 ML/MIN Rate Random Glucose 119 MG/DL Calcium Level 8.7 MG/DL Imaging Last Impressions Chest CT 09/19/16 0000 Signed Impressions: Service Date/Time: Monday, September 19, 2016 17:06 - CONCLUSION: Areas of consolidation throughout the right upper lung and in the lower lobes bilaterally likely representing areas of inflammatory change and infection. There is some mildly prominent lymph nodes seen in the precarinal area. Sunil Dong MD Chest X-Ray 09/18/16 1203 Signed Impressions: Service Date/Time: Sunday, September 18, 2016 12:40 - CONCLUSION: Patchy areas of consolidation and possible cavitary changes throughout the right lung. Sunil Dong MD Last Impressions Chest X-Ray 09/18/16 1203 Signed Impressions: Service Date/Time: Sunday, September 18, 2016 12:40 - CONCLUSION: Patchy areas of consolidation and possible cavitary changes throughout the right lung. Sunil Dong MD Objective Remarks Exam: Pleasant female in no distress HEENT: pupils equal, no scleral icterus, mouth negative Neck: No JVD Heart: RRR with no murmurs Lungs: Rhonchi right base and occasional wheezing throughout Abdomen: Soft, nontender, no masses Extremities: No edema Neuro: Negative A/P Assessment and Plan Assessment: --Pneumonia--patient has multiple drug allergies to antibiotics (penicillins, cephalosporins; sulfa) --Bronchiectasis --Sepsis--clinically resolved --Asthma Plan: Appreciate infectious disease input. Continue antibiotics. Continue nebulizer treatments and Solu-Medrol.. Continue SCD's/ADAM hose for DVT prophylaxis. Mike Hopkins MD Sep 20, 2016 06:29
[2016-09-20] MEDS: FLUTICASONE 100 MCG/VILANTEROL 25 MCG INHALER INH SCH (09:15)
[2016-09-20] MEDS: VENLAFAXINE HCL XR 75 MG CAP PO SCH (09:16)
[2016-09-20] MEDS: methylPREDNISolone SOD SUCC 40 MG/1 ML VIAL IV PUSH SCH ×2 (09:16→21:18)
[2016-09-20] MEDS: LACTOBACILLUS ACIDOPHILUS TAB PO SCH ×2 (09:17→21:17)
[2016-09-20] MEDS: DOXYCYCLINE HYCLATE 100 MG TAB PO SCH ×2 (09:17→21:17)
[2016-09-20] MEDS: guaiFENesin E.R. 600 MG TAB PO SCH ×2 (09:17→21:17)
[2016-09-20] MEDS: SODIUM CHLORIDE 0.9% FLUSH 5 ML FLUSH FLUSH SCH ×2 (09:17→21:21)
[2016-09-20] MEDS: ACETAMINOPHEN/HYDROcodone 325 MG/5 MG TAB PO PRN (09:23)
[2016-09-20] MEDS: RESP: ALBUTEROL 2.5 MG/IPRATROPIUM 0.5 MG NEB (SCH) NEB ×3 (09:40→19:55)
--- NOTE | 2016-09-20 17:01 | HHI.IDPN ---
Subjective Subjective Remarks Notes reviewed No fever States breathing not better, not worse C/O L sided CP when she breathes Still coughing a lot CT chest no cavitation seen, all infiltrates Sputum C/S pending Patient completed a course of Levaquin and did not improve Antibiotics Azactam Doxycycline Lines PIV Past Medical History Bronchiectasis Asthma for 20 years Depression which is controlled well Recurrent pneumonia Restless leg syndrome, that has resolved. Rheumatoid arthritis Past Surgical History Bilateral sinus surgery apparently twice Bilateral tubal ligation Tonsillectomy Appendectomy Allergies: Coded Allergies: Aspirin (Verified Allergy, Severe, shock, 09/18/16) Cephalosporins (Verified Allergy, Severe, Anaphylaxis, 09/18/16) Erythromycin (Verified Allergy, Severe, Anaphylaxis, 09/18/16) Penicillin (Verified Allergy, Severe, Anaphylaxis, 09/18/16) Sulfa (Verified Allergy, Severe, Anaphylaxis, 09/18/16) Uncoded Allergies: NSAIDS (Allergy, Severe, Anaphylaxis, 08/09/12) Objective . Vital Signs Date Time Temp Pulse Resp B/P Pulse Ox O2 Delivery O2 Flow Rate FiO2 09/20/16 12:00 98.0 90 18 118/77 93 09/20/16 09:42 92 Nasal Cannula 2.00 09/20/16 09:15 97 Nasal Cannula 1.00 09/20/16 08:00 98.0 79 20 135/85 92 09/20/16 00:00 96.6 101 20 116/78 95 09/19/16 20:00 96.6 102 21 142/71 92 09/19/16 19:50 Nasal Cannula 1.00 09/19/16 19:15 93 Nasal Cannula 1.00 09/19/16 09/19/16 09/20/16 15:00 23:00 07:00 Intake Total 840 ml 240 ml 240 ml Balance 840 ml 240 ml 240 ml Intake Oral 840 ml 240 ml 240 ml # Voids 1 2 1 # Bowel Movements 0 0 0 . Laboratory Tests Test 09/19/16 09/20/16 05:01 05:45 White Blood Count 15.3 TH/MM3 18.0 TH/MM3 Red Blood Count 4.03 MIL/MM3 4.11 MIL/MM3 Hemoglobin 10.3 GM/DL 10.4 GM/DL Hematocrit 31.4 % 32.0 % Mean Corpuscular Volume 77.9 FL 77.7 FL Mean Corpuscular Hemoglobin 25.6 PG 25.2 PG Mean Corpuscular Hemoglobin 32.8 % 32.4 % Concent Red Cell Distribution Width 16.9 % 17.1 % Platelet Count 435 TH/MM3 507 TH/MM3 Mean Platelet Volume 7.4 FL 7.1 FL Neutrophils (%) (Auto) 93.4 % 91.0 % Lymphocytes (%) (Auto) 5.2 % 5.5 % Monocytes (%) (Auto) 1.3 % 3.4 % Eosinophils (%) (Auto) 0.1 % 0.0 % Basophils (%) (Auto) 0.0 % 0.1 % Neutrophils # (Auto) 14.3 TH/MM3 16.4 TH/MM3 Lymphocytes # (Auto) 0.8 TH/MM3 1.0 TH/MM3 Monocytes # (Auto) 0.2 TH/MM3 0.6 TH/MM3 Eosinophils # (Auto) 0.0 TH/MM3 0.0 TH/MM3 Basophils # (Auto) 0.0 TH/MM3 0.0 TH/MM3 CBC Comment DIFF FINAL DIFF FINAL Differential Comment Laboratory Tests Test 09/18/16 09/19/16 09/20/16 17:00 05:01 05:45 Lactic Acid Level 1.3 mmol/L Sodium Level 143 MEQ/L 144 MEQ/L Potassium Level 4.1 MEQ/L 4.6 MEQ/L Chloride Level 108 MEQ/L 109 MEQ/L Carbon Dioxide Level 25.8 MEQ/L 27.0 MEQ/L Anion Gap 9 MEQ/L 8 MEQ/L Blood Urea Nitrogen 15 MG/DL 22 MG/DL Creatinine 0.53 MG/DL 0.63 MG/DL Estimat Glomerular Filtration 122 ML/MIN 100 ML/MIN Rate Random Glucose 131 MG/DL 119 MG/DL Calcium Level 8.2 MG/DL 8.7 MG/DL Total Bilirubin 0.3 MG/DL Aspartate Amino Transf 10 U/L (AST/SGOT) Alanine Aminotransferase 25 U/L (ALT/SGPT) Alkaline Phosphatase 97 U/L Total Protein 6.8 GM/DL Albumin 2.4 GM/DL Microbiology Date/Time Procedure Status Source Growth 09/18/16 12:35 Aerobic Blood Culture - Preliminary Resulted Blood Peripheral NO GROWTH IN 2 DAYS 09/18/16 12:35 Anaerobic Blood Culture - Preliminary Resulted Blood Peripheral NO GROWTH IN 2 DAYS 09/18/16 13:11 Aerobic Blood Culture - Preliminary Resulted Blood Peripheral NO GROWTH IN 2 DAYS 09/18/16 13:11 Anaerobic Blood Culture - Preliminary Resulted Blood Peripheral NO GROWTH IN 2 DAYS 09/18/16 18:35 Legionella Antigen - Final Complete Urine Clean Catch PRESUMPTIVE NEGATIVE FOR LEGIONELLA P... 09/18/16 18:35 Streptococcus pneumoniae Antigen (M - Final Complete Urine Clean Catch PRESUMPTIVE NEGATIVE FOR STREPTOCOCCU... 09/20/16 10:20 Gram Stain Received Sputum Expectorated Sputum Pending 09/20/16 10:20 Sputum Culture Received Sputum Expectorated Sputum Pending Imaging Chest CT 09/19/16 0000 Signed Impressions: Service Date/Time: Monday, September 19, 2016 17:06 - CONCLUSION: Areas of consolidation throughout the right upper lung and in the lower lobes bilaterally likely representing areas of inflammatory change and infection. There is some mildly prominent lymph nodes seen in the precarinal area. Sunil Dong MD Chest X-Ray 09/18/16 1203 Signed Impressions: Service Date/Time: Sunday, September 18, 2016 12:40 - CONCLUSION: Patchy areas of consolidation and possible cavitary changes throughout the right lung. Sunil Dong MD Physical Exam GENERAL: awake and alert, in no apparent distress. SKIN: Cool and dry. No generalized rash or ecchymosis. HEENT: [place] conjunctivae. No scleral icterus. No injection or drainage. Moist oral mucosa, no oral thrush. NECK: Trachea midline. No JVD or lymphadenopathy. Supple, nontender, no meningeal signs. CARDIOVASCULAR: Regular rate and rhythm without murmurs, gallops, or rubs. RESPIRATORY: Rhonchi L base. She has scattered rhonchi and rales on the right side. Increased vocal fremitus on the whole right lung, with E to A changes GASTROINTESTINAL: Abdomen soft, non-tender, nondistended. Bowel sounds are present and normoactive. No organomegaly. No guarding. MUSCULOSKELETAL: Extremities without clubbing, cyanosis, or edema. No calf tenderness. Negative Homans sign bilaterally. NEUROLOGICAL: NOn-focal PSYCH: Normal affect, calm and cooperative LINE: PIV with no evidence of infection Assessment & Plan Remarks IMPRESSION Community-acquired pneumonia, patient with underlying bronchiectasis - no evidence of cavitation on CT chest Rheumatoid arthritis Multiple antibiotic allergies some reaction severe with anaphylaxis RECOMMENDATION Follow C/S Continue Azactam Continue Doxycycline Monitor progress ?Get pulmonary opinion if not better - ?if bronch might be beneficial Explained plan to patient Christina Sethi MD Sep 20, 2016 17:01
[2016-09-21] VITALS (7 sets, daily range): BP systolic 135–144; BP diastolic 82–97; PULSE 85–89; RESP 17–20; TEMP 96.2–97.9; O2SAT 94–98
[2016-09-21] MEDS ORDERED: PHARMACY ORDERED LAB XX ONE (05:45)
[2016-09-21] MEDS: AZTREONAM INJ 1,000 MG in SODIUM CHLORIDE 0.9% INJ 100 ML IV SCH (06:04)
[2016-09-21 06:53] LABS: AUTOMATED NEUTROPHIL # 10.2 TH/MM3 (1.8-7.7); BASOPHIL # 0.2 TH/MM3 (0-0.2); BASOPHIL % 1.5 % (0.0-2.0); EOSINOPHIL % 0.1 % (0.0-4.0); HEMATOCRIT 30.5 % (35.0-46.0); LYMPH % 10.9 % (9.0-44.0); LYMPHOCYTE # 1.3 TH/MM3 (1.0-4.8); MEAN CELL VOLUME 77.9 FL (80.0-100.0); MEAN CORPUSCULAR HEMOGLOBIN 24.7 PG (27.0-34.0); MEAN CORPUSCULAR HGB CONC 31.7 % (32.0-36.0); NEUT % 85.5 % (16.0-70.0); PLATELET COUNT 461 TH/MM3 (150-450); RED BLOOD COUNT 3.91 MIL/MM3 (4.00-5.30); WHITE BLOOD COUNT 11.9 TH/MM3 (4.0-11.0)
[2016-09-21 07:06] LABS: HEMO FLAGS AUTO DIFF
[2016-09-21 07:26] LABS: ROULEAUX PRESENT (NORMAL); SCAN/DIFF AUTO DIFF CONFIRMED
[2016-09-21] MEDS: guaiFENesin E.R. 600 MG TAB PO SCH ×2 (08:07→20:36)
[2016-09-21] MEDS: methylPREDNISolone SOD SUCC 40 MG/1 ML VIAL IV PUSH SCH ×2 (08:07→20:35)
[2016-09-21] MEDS: DOXYCYCLINE HYCLATE 100 MG TAB PO SCH (08:07)
[2016-09-21] MEDS: LACTOBACILLUS ACIDOPHILUS TAB PO SCH ×2 (08:07→20:36)
[2016-09-21] MEDS: FLUTICASONE 100 MCG/VILANTEROL 25 MCG INHALER INH SCH (08:08)
[2016-09-21] MEDS: VENLAFAXINE HCL XR 75 MG CAP PO SCH (08:08)
[2016-09-21] MEDS: SODIUM CHLORIDE 0.9% FLUSH 5 ML FLUSH FLUSH SCH ×2 (08:09→20:35)
--- NOTE | 2016-09-21 08:35 | HHI.PR ---
Subjective Remarks Her cough is about the same and breathing the same. No new complaints. Objective Vitals Vital Signs Date Time Temp Pulse Resp B/P Pulse Ox O2 Delivery O2 Flow Rate FiO2 09/21/16 08:06 97.9 85 17 139/97 95 09/21/16 00:00 96.2 89 20 141/87 96 09/20/16 23:00 94 Nasal Cannula 1.00 09/20/16 20:00 96.2 94 20 120/81 94 09/20/16 19:57 97 Nasal Cannula 2.00 09/20/16 16:00 97.2 98 20 128/70 95 09/20/16 12:00 98.0 90 18 118/77 93 09/20/16 09:42 92 Nasal Cannula 2.00 09/20/16 09:15 97 Nasal Cannula 1.00 09/20/16 09/20/16 09/21/16 15:00 23:00 07:00 Intake Total 750 ml 820 ml 240 ml Balance 750 ml 820 ml 240 ml Intake Oral 750 ml 720 ml 240 ml IV Total 100 ml # Voids 3 1 2 # Bowel Movements 0 0 Result Diagram: 09/21/16 0607 09/20/16 0545 Other Results Laboratory Tests Test 09/20/16 09/21/16 05:45 06:07 White Blood Count 18.0 TH/MM3 11.9 TH/MM3 Red Blood Count 4.11 MIL/MM3 3.91 MIL/MM3 Hemoglobin 10.4 GM/DL 9.7 GM/DL Hematocrit 32.0 % 30.5 % Mean Corpuscular Volume 77.7 FL 77.9 FL Mean Corpuscular Hemoglobin 25.2 PG 24.7 PG Mean Corpuscular Hemoglobin 32.4 % 31.7 % Concent Red Cell Distribution Width 17.1 % 17.0 % Platelet Count 507 TH/MM3 461 TH/MM3 Mean Platelet Volume 7.1 FL 7.2 FL Neutrophils (%) (Auto) 91.0 % 85.5 % Lymphocytes (%) (Auto) 5.5 % 10.9 % Monocytes (%) (Auto) 3.4 % 2.0 % Eosinophils (%) (Auto) 0.0 % 0.1 % Basophils (%) (Auto) 0.1 % 1.5 % Neutrophils # (Auto) 16.4 TH/MM3 10.2 TH/MM3 Lymphocytes # (Auto) 1.0 TH/MM3 1.3 TH/MM3 Monocytes # (Auto) 0.6 TH/MM3 0.2 TH/MM3 Eosinophils # (Auto) 0.0 TH/MM3 0.0 TH/MM3 Basophils # (Auto) 0.0 TH/MM3 0.2 TH/MM3 CBC Comment DIFF FINAL AUTO DIFF Differential Comment AUTO DIFF CONFIRMED Sodium Level 144 MEQ/L Potassium Level 4.6 MEQ/L Chloride Level 109 MEQ/L Carbon Dioxide Level 27.0 MEQ/L Anion Gap 8 MEQ/L Blood Urea Nitrogen 22 MG/DL Creatinine 0.63 MG/DL Estimat Glomerular Filtration 100 ML/MIN Rate Random Glucose 119 MG/DL Calcium Level 8.7 MG/DL Basophilic Stippling FAINT Rouleau PRESENT Imaging Last Impressions Chest CT 09/19/16 0000 Signed Impressions: Service Date/Time: Monday, September 19, 2016 17:06 - CONCLUSION: Areas of consolidation throughout the right upper lung and in the lower lobes bilaterally likely representing areas of inflammatory change and infection. There is some mildly prominent lymph nodes seen in the precarinal area. Sunil Dong MD Chest X-Ray 09/18/16 1203 Signed Impressions: Service Date/Time: Sunday, September 18, 2016 12:40 - CONCLUSION: Patchy areas of consolidation and possible cavitary changes throughout the right lung. Sunil Dong MD Last Impressions Chest X-Ray 09/18/16 1203 Signed Impressions: Service Date/Time: Sunday, September 18, 2016 12:40 - CONCLUSION: Patchy areas of consolidation and possible cavitary changes throughout the right lung. Sunil Dong MD Objective Remarks Exam: Pleasant female in no distress HEENT: pupils equal, no scleral icterus, mouth negative Neck: No JVD Heart: RRR with no murmurs Lungs: Rhonchi right base and occasional wheezing throughout Abdomen: Soft, nontender, no masses Extremities: No edema Neuro: Negative A/P Assessment and Plan Assessment: --Pneumonia--patient has multiple drug allergies to antibiotics (penicillins, cephalosporins; sulfa) --Bronchiectasis --Sepsis--clinically resolved --Asthma Plan: Appreciate infectious disease input. Continue antibiotics. Continue nebulizer treatments and Solu-Medrol.. Continue SCD's/ADAM hose for DVT prophylaxis. Consult pulmonary (she sees Dr Robert) as an outpatient. She has had bronchoscopy on more than one occasion. Mike Hopkins MD Sep 21, 2016 08:35
[2016-09-21] MEDS: RESP: ALBUTEROL 2.5 MG/IPRATROPIUM 0.5 MG NEB (SCH) NEB ×3 (09:48→19:25)
[2016-09-21] MEDS ORDERED: Vancomycin Consult Pharmacy 1 EA OTHER SCH (14:00)
--- NOTE | 2016-09-21 14:16 | HHI.IDPN ---
Subjective Subjective Remarks Notes reviewed No fever States breathing same C/O L sided CP when she breathes Still coughing a lot Sputum prelim with MRSA CT chest no cavitation seen, all infiltrates Antibiotics Azactam Doxycycline Lines PIV Past Medical History Bronchiectasis Asthma for 20 years Depression which is controlled well Recurrent pneumonia Restless leg syndrome, that has resolved. Rheumatoid arthritis Past Surgical History Bilateral sinus surgery apparently twice Bilateral tubal ligation Tonsillectomy Appendectomy Allergies: Coded Allergies: Aspirin (Verified Allergy, Severe, shock, 09/18/16) Cephalosporins (Verified Allergy, Severe, Anaphylaxis, 09/18/16) Erythromycin (Verified Allergy, Severe, Anaphylaxis, 09/18/16) Penicillin (Verified Allergy, Severe, Anaphylaxis, 09/18/16) Sulfa (Verified Allergy, Severe, Anaphylaxis, 09/18/16) Uncoded Allergies: NSAIDS (Allergy, Severe, Anaphylaxis, 08/09/12) Objective . Vital Signs Date Time Temp Pulse Resp B/P Pulse Ox O2 Delivery O2 Flow Rate FiO2 09/21/16 12:08 97.3 87 17 144/84 97 09/21/16 09:50 94 Nasal Cannula 2.00 09/21/16 08:06 97.9 85 17 139/97 95 09/21/16 00:00 96.2 89 20 141/87 96 09/20/16 23:00 94 Nasal Cannula 1.00 09/20/16 20:00 96.2 94 20 120/81 94 09/20/16 19:57 97 Nasal Cannula 2.00 09/20/16 16:00 97.2 98 20 128/70 95 09/20/16 09/20/16 09/21/16 15:00 23:00 07:00 Intake Total 750 ml 820 ml 240 ml Balance 750 ml 820 ml 240 ml Intake Oral 750 ml 720 ml 240 ml IV Total 100 ml # Voids 3 1 2 # Bowel Movements 0 0 . Laboratory Tests Test 09/20/16 09/21/16 05:45 06:07 White Blood Count 18.0 TH/MM3 11.9 TH/MM3 Red Blood Count 4.11 MIL/MM3 3.91 MIL/MM3 Hemoglobin 10.4 GM/DL 9.7 GM/DL Hematocrit 32.0 % 30.5 % Mean Corpuscular Volume 77.7 FL 77.9 FL Mean Corpuscular Hemoglobin 25.2 PG 24.7 PG Mean Corpuscular Hemoglobin 32.4 % 31.7 % Concent Red Cell Distribution Width 17.1 % 17.0 % Platelet Count 507 TH/MM3 461 TH/MM3 Mean Platelet Volume 7.1 FL 7.2 FL Neutrophils (%) (Auto) 91.0 % 85.5 % Lymphocytes (%) (Auto) 5.5 % 10.9 % Monocytes (%) (Auto) 3.4 % 2.0 % Eosinophils (%) (Auto) 0.0 % 0.1 % Basophils (%) (Auto) 0.1 % 1.5 % Neutrophils # (Auto) 16.4 TH/MM3 10.2 TH/MM3 Lymphocytes # (Auto) 1.0 TH/MM3 1.3 TH/MM3 Monocytes # (Auto) 0.6 TH/MM3 0.2 TH/MM3 Eosinophils # (Auto) 0.0 TH/MM3 0.0 TH/MM3 Basophils # (Auto) 0.0 TH/MM3 0.2 TH/MM3 CBC Comment DIFF FINAL AUTO DIFF Differential Comment AUTO DIFF CONFIRMED Basophilic Stippling FAINT Rouleau PRESENT Laboratory Tests Test 09/20/16 05:45 Sodium Level 144 MEQ/L Potassium Level 4.6 MEQ/L Chloride Level 109 MEQ/L Carbon Dioxide Level 27.0 MEQ/L Anion Gap 8 MEQ/L Blood Urea Nitrogen 22 MG/DL Creatinine 0.63 MG/DL Estimat Glomerular Filtration 100 ML/MIN Rate Random Glucose 119 MG/DL Calcium Level 8.7 MG/DL Microbiology Date/Time Procedure Status Source Growth 09/18/16 18:35 Legionella Antigen - Final Complete Urine Clean Catch PRESUMPTIVE NEGATIVE FOR LEGIONELLA P... 09/18/16 18:35 Streptococcus pneumoniae Antigen (M - Final Complete Urine Clean Catch PRESUMPTIVE NEGATIVE FOR STREPTOCOCCU... 09/20/16 10:20 Gram Stain - Final Resulted Sputum Expectorated Sputum 09/20/16 10:20 Sputum Culture - Preliminary Resulted S. Aureus [facility] Chest CT 09/19/16 0000 Signed Impressions: Service Date/Time: Monday, September 19, 2016 17:06 - CONCLUSION: Areas of consolidation throughout the right upper lung and in the lower lobes bilaterally likely representing areas of inflammatory change and infection. There is some mildly prominent lymph nodes seen in the precarinal area. Sunil Dong MD Chest X-Ray 09/18/16 1203 Signed Impressions: Service Date/Time: Sunday, September 18, 2016 12:40 - CONCLUSION: Patchy areas of consolidation and possible cavitary changes throughout the right lung. Sunil Dong MD Physical Exam GENERAL: awake and alert, in no apparent distress. SKIN: Cool and dry. No generalized rash or ecchymosis. HEENT: [place] conjunctivae. No scleral icterus. No injection or drainage. Moist oral mucosa, no oral thrush. NECK: Supple, nontender, no meningeal signs. CARDIOVASCULAR: Regular rate and rhythm without murmurs, gallops, or rubs. RESPIRATORY: Has diffuse rhonchi GASTROINTESTINAL: Abdomen soft, non-tender, nondistended. Bowel sounds are present and normoactive. No organomegaly. No guarding. MUSCULOSKELETAL: Extremities without clubbing, cyanosis, or edema. No calf tenderness. Negative Homans sign bilaterally. NEUROLOGICAL: NOn-focal PSYCH: Normal affect, calm and cooperative LINE: PIV with no evidence of infection Assessment & Plan Remarks IMPRESSION Community-acquired pneumonia, patient with underlying bronchiectasis - no evidence of cavitation on CT chest Rheumatoid arthritis Multiple antibiotic allergies some reaction severe with anaphylaxis RECOMMENDATION Follow C/S IV Vancomycin - premedicate roney with long list of allergies Restart Levaquin for additional coverage Stop Azactam and Doxycyline PICC Monitor progress Pulmonary consult pending Explained plan to patient D/W Christina Hawkins MD Sep 21, 2016 14:16
--- NOTE | 2016-09-21 16:43 | RADHPO ---
EXAM DATE/TIME: 09/21/2016 16:18 [place] COMPARISON: CT THORAX W/O CONTRAST, September 19, 2016, 17:06. CHEST SINGLE AP, September 18, 2016, 12:40. INDICATIONS : Post PICC line placement. MEDICAL HISTORY : Chronic obstructive pulmonary disease. Rheumatoid arthritis. SURGICAL HISTORY : None. ENCOUNTER: Subsequent ACUITY: 4 - 6 days PAIN SCORE: 0/10 LOCATION: Bilateral chest FINDINGS: There is a PICC line in place from the right arm with the tip overlying the SVC. This is well placed. A pneumothorax is not seen. There is some patchy density seen in the right upper and midlung. The le ft lung is clear. The costophrenic angles are clear. CONCLUSION: PICC line in good position. There continues to patchy density in the right upper and midlung which ap pears to be improving. Sunil Dong MD on September 21, 2016 at 16:40 Board Certified Radiologist. This report was verified electronically.
[2016-09-21] MEDS: diphenhydrAMINE HCL 25 MG CAP PO SCH (17:02)
[2016-09-21] MEDS: VANCOMYCIN INJ 1,000 MG in SODIUM CHLOR 0.9% 250 ML INJ 250 ML IV SCH (17:45)
--- NOTE | 2016-09-21 19:19 | MB ---
cc: DIANN MILLER DATE OF CONSULTATION: 09/21/2016. REASON FOR CONSULTATION: Evaluation of pneumonia and bronchiectasis. HISTORY OF PRESENT ILLNESS: Ms. Brian is a pleasant 51-year-old female with a longstanding history of bronchiectasis. She has had multiple chest infections. Recently she was having fever, cough and congestion. She took a course of antibiotics with Levaquin and did not get better and came to the hospital. She had a workup done. Her CBC showed white blood cell count of 11.9, hemoglobin 9.7, hematocrit 30.4, MCV 77.9, platelet count 461,000. Sodium 141, potassium 4.6, chloride 109, carbon dioxide 27, BUN 22, creatinine 0.63. Her sputum is growing MRSA. Her CT scan of the chest shows she has an area of consolidation throughout the right upper lobe and the lower lobes bilaterally representing inflammatory changes and infection. She was seen initially at [facility] but she is in remission and is not taking any medications for it. PAST MEDICAL HISTORY: Her past medical history is significant for: 1. History of bronchiectasis. 2. Pneumonia. 3. Asthma. 4. Anxiety and depression. 5. Rheumatoid arthritis. MEDICATIONS: Currently she is takin. Levaquin 750 milligrams a day. 2. Vancomycin IV. 3. Benadryl q. 12 hours. 4. Breo /Ellipta 100/25 once a day. 5. Effexor 150 milligrams a day. 6. [place] 5/325 as needed. 7. Solu-Medrol 40 milligrams q. 12 hours. 8. Albuterol and Atrovent nebulizer treatment. ALLERGIES: 1. ASPIRIN. 2. CEPHALOSPORINS. 3. ERYTHROMYCIN. 4. ANCEF. 5. PENICILLIN. 6. SULFA. SOCIAL HISTORY: She is . 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 No history of smoking. Drinks socially. FAMILY HISTORY: She has three children by and two by marriage. REVIEW OF SYSTEMS: Normally she is up around and active. No hemoptysis. No DVT or pulmonary embolism. No seizure, stroke or epilepsy. PHYSICAL EXAMINATION: GENERAL: Pleasant elderly female not in acute distress. VITAL SIGNS: Blood pressure is 140/82, heart rate 86, respirations 18, temperature 97.6. HEAD, EYES, EARS, NOSE, THROAT: Pupils are equal and reactive to light. Oral mucosa and nasal mucosa are normal. NECK: The neck is supple. JVP not raised. CHEST: A few bilateral rales. CARDIOVASCULAR: S1 and S2 normal. ABDOMEN: Abdomen benign. IMPRESSION: 1. Bronchiectasis. 2. MRSA pneumonia. 3. Rheumatoid arthritis. 4. Anxiety and depression. PLAN: 1. Will continue antibiotics with Levaquin and vancomycin per infectious disease recommendation. 2. Check blood cultures. 3. Continue Solu-Medrol and aerosol treatment and also encourage her to use Acapella. Further treatment will depend on the course in the hospital. Thank you, Dr. Mike Hopkins, for this consultation. Diann Miller MD ADA/JCC /6:09 PM /7:06 PM MTDAria
[2016-09-21] MEDS: TEMAZEPAM 15 MG CAP PO PRN (23:15)
[2016-09-22] VITALS (7 sets, daily range): BP systolic 128–141; BP diastolic 82–92; PULSE 72–100; RESP 18–20; TEMP 96.9–98; O2SAT 96–98
[2016-09-22] MEDS: diphenhydrAMINE HCL 25 MG CAP PO SCH ×3 (05:50→17:49)
[2016-09-22] MEDS: VANCOMYCIN INJ 1,000 MG in SODIUM CHLOR 0.9% 250 ML INJ 250 ML IV SCH ×2 (06:30→18:31)
[2016-09-22 07:20] LABS: BASOPHIL # 0.1 TH/MM3 (0-0.2); BASOPHIL % 0.5 % (0.0-2.0); EOSINOPHIL % 0.1 % (0.0-4.0); LYMPH % 14.5 % (9.0-44.0); LYMPHOCYTE # 1.6 TH/MM3 (1.0-4.8); MEAN CELL VOLUME 78.7 FL (80.0-100.0); MEAN CORPUSCULAR HGB CONC 30.5 % (32.0-36.0); MONO % 3.9 % (0.0-8.0); PLATELET COUNT 448 TH/MM3 (150-450); RED BLOOD COUNT 3.81 MIL/MM3 (4.00-5.30); RED CELL DISTRIBUTION WIDTH 17.3 % (11.6-17.2); WHITE BLOOD COUNT 11.1 TH/MM3 (4.0-11.0)
[2016-09-22 07:34] LABS: HEMO FLAGS AUTO DIFF
[2016-09-22] MEDS: RESP: ALBUTEROL 2.5 MG/IPRATROPIUM 0.5 MG NEB (SCH) NEB ×3 (07:43→20:00)
[2016-09-22 08:05] LABS: ROULEAUX PRESENT (NORMAL); SCAN/DIFF AUTO DIFF CONFIRMED
--- NOTE | 2016-09-22 08:39 | HHI.PR ---
Subjective Remarks Her breathing is stable. Sputum grew out MRSA. Objective Vitals Vital Signs Date Time Temp Pulse Resp B/P Pulse Ox O2 Delivery O2 Flow Rate FiO2 09/22/16 07:59 96 Room Air 09/22/16 07:46 98 21 09/22/16 00:04 97.2 85 20 129/92 96 09/21/16 20:04 97.4 85 20 135/84 98 09/21/16 20:00 98 Room Air 09/21/16 19:25 97 21 09/21/16 16:08 97.6 86 18 140/82 96 09/21/16 12:08 97.3 87 17 144/84 97 09/21/16 09:50 94 Nasal Cannula 2.00 09/21/16 09/21/16 09/22/16 15:00 23:00 07:00 Intake Total 950 ml Balance 950 ml Intake Oral 950 ml # Voids 5 1 # Bowel Movements 1 Result Diagram: 09/22/16 0612 09/20/16 0545 Other Results Laboratory Tests Test 09/18/16 09/18/16 09/19/16 09/20/16 13:11 17:00 05:01 05:45 Platelet Estimate NORMAL Platelet Morphology Comment NORMAL Red Cell Morphology Comment NORMAL Lactic Acid Level 1.3 mmol/L Total Bilirubin 0.3 MG/DL Aspartate Amino Transf 10 U/L (AST/SGOT) Alanine Aminotransferase 25 U/L (ALT/SGPT) Alkaline Phosphatase 97 U/L Total Protein 6.8 GM/DL Albumin 2.4 GM/DL Sodium Level 144 MEQ/L Potassium Level 4.6 MEQ/L Chloride Level 109 MEQ/L Carbon Dioxide Level 27.0 MEQ/L Anion Gap 8 MEQ/L Blood Urea Nitrogen 22 MG/DL Creatinine 0.63 MG/DL Estimat Glomerular Filtration 100 ML/MIN Rate Random Glucose 119 MG/DL Calcium Level 8.7 MG/DL Test 09/22/16 06:12 White Blood Count 11.1 TH/MM3 Red Blood Count 3.81 MIL/MM3 Hemoglobin 9.1 GM/DL Hematocrit 30.0 % Mean Corpuscular Volume 78.7 FL Mean Corpuscular Hemoglobin 24.0 PG Mean Corpuscular Hemoglobin 30.5 % Concent Red Cell Distribution Width 17.3 % Platelet Count 448 TH/MM3 Mean Platelet Volume 7.2 FL Neutrophils (%) (Auto) 81.0 % Lymphocytes (%) (Auto) 14.5 % Monocytes (%) (Auto) 3.9 % Eosinophils (%) (Auto) 0.1 % Basophils (%) (Auto) 0.5 % Neutrophils # (Auto) 9.0 TH/MM3 Lymphocytes # (Auto) 1.6 TH/MM3 Monocytes # (Auto) 0.4 TH/MM3 Eosinophils # (Auto) 0.0 TH/MM3 Basophils # (Auto) 0.1 TH/MM3 CBC Comment AUTO DIFF Differential Comment AUTO DIFF CONFIRMED Basophilic Stippling FAINT Rouleau PRESENT Imaging Last Impressions Chest X-Ray 09/21/16 0000 Signed Impressions: Service Date/Time: Wednesday, September 21, 2016 16:18 - CONCLUSION: PICC line in good position. There continues to patchy density in the right upper and midlung which appears to be improving. Sunil Dong MD Chest CT 09/19/16 0000 Signed Impressions: Service Date/Time: Monday, September 19, 2016 17:06 - CONCLUSION: Areas of consolidation throughout the right upper lung and in the lower lobes bilaterally likely representing areas of inflammatory change and infection. There is some mildly prominent lymph nodes seen in the precarinal area. Sunil Dong MD Last Impressions Chest CT 09/19/16 0000 Signed Impressions: Service Date/Time: Monday, September 19, 2016 17:06 - CONCLUSION: Areas of consolidation throughout the right upper lung and in the lower lobes bilaterally likely representing areas of inflammatory change and infection. There is some mildly prominent lymph nodes seen in the precarinal area. Sunil Dong MD Chest X-Ray 09/18/16 1203 Signed Impressions: Service Date/Time: Sunday, September 18, 2016 12:40 - CONCLUSION: Patchy areas of consolidation and possible cavitary changes throughout the right lung. Sunil Dong MD Last Impressions Chest X-Ray 09/18/16 1203 Signed Impressions: Service Date/Time: Sunday, September 18, 2016 12:40 - CONCLUSION: Patchy areas of consolidation and possible cavitary changes throughout the right lung. Sunil Dong MD Objective Remarks Exam: Pleasant female in no distress HEENT: pupils equal, no scleral icterus, mouth negative Neck: No JVD Heart: RRR with no murmurs Lungs: Some coarse rhonchi and wheezing throughout Abdomen: Soft, nontender, no masses Extremities: No edema Neuro: Negative A/P Assessment and Plan Assessment: --Pneumonia--patient has multiple drug allergies to antibiotics (penicillins, cephalosporins; sulfa); MRSA growing out of sputum --Bronchiectasis --Sepsis--clinically resolved --Asthma --Microcytic anemia--Hg gradually decreasing (was 12.1 on admission and now dropped to 9.1 Plan: Antibiotics managed by ID Continue nebulizer treatments and Solu-Medrol.. Continue SCD's/ADAM hose for DVT prophylaxis. Patient also being seen by financial reporting specialist. Check iron levels and do stool Hemoccult. Mike Hopkins MD Sep 22, 2016 08:39
[2016-09-22] MEDS: methylPREDNISolone SOD SUCC 40 MG/1 ML VIAL IV PUSH SCH ×2 (10:15→20:59)
[2016-09-22] MEDS: VENLAFAXINE HCL XR 75 MG CAP PO SCH (10:19)
[2016-09-22] MEDS: FLUTICASONE 100 MCG/VILANTEROL 25 MCG INHALER INH SCH (10:20)
[2016-09-22] MEDS: guaiFENesin E.R. 600 MG TAB PO SCH ×2 (10:20→21:00)
[2016-09-22] MEDS: LACTOBACILLUS ACIDOPHILUS TAB PO SCH ×2 (10:20→21:00)
[2016-09-22] MEDS: SODIUM CHLORIDE 0.9% FLUSH 5 ML FLUSH FLUSH SCH ×2 (10:22→21:00)
[2016-09-22 11:42] LABS: RETIC % 1.3 % (0.4-3.0)
[2016-09-22 11:45] LABS: REVIEW FLAG FINAL
[2016-09-22 11:50] LABS: TRANSFERRIN IRON PROFILE 247 MG/DL (200-360)
[2016-09-22] MEDS: LEVOFLOXACIN 750 MG TAB PO SCH (14:08)
[2016-09-22] MEDS: FERROUS FUMARATE 325 MG TAB (106 MG ELEMENTAL IRON) PO SCH ×2 (16:39→21:00)
--- NOTE | 2016-09-22 18:58 | HHI.PR ---
Subjective Remarks 51 YOWF with Bronchiectesis,MRSA Pn Feels better Cough, difficult to expactorate no Fever Objective Vital Signs Vital Signs Date Time Temp Pulse Resp B/P Pulse Ox O2 Delivery O2 Flow Rate FiO2 09/22/16 16:00 96.9 100 18 128/82 97 09/22/16 12:00 97.7 83 18 134/92 96 09/22/16 08:00 97.7 72 18 141/85 97 09/22/16 07:59 96 Room Air 09/22/16 07:46 98 21 09/22/16 00:04 97.2 85 20 129/92 96 09/21/16 20:04 97.4 85 20 135/84 98 09/21/16 20:00 98 Room Air 09/21/16 19:25 97 21 I/O 09/21/16 09/21/16 09/21/16 09/22/16 09/22/16 09/22/16 07:00 15:00 23:00 07:00 15:00 23:00 Intake Total 240 ml 950 ml 850 ml Balance 240 ml 950 ml 850 ml Intake Oral 240 ml 950 ml 850 ml # Voids 2 5 1 4 # Bowel Movements 0 1 1 Result Diagram: 09/22/16 0612 09/20/16 0545 Objective Remarks GENERAL: MBMN WF,NAD SKIN: Warm and dry. HEAD: Normocephalic. EYES: No scleral icterus. No injection or drainage. NECK: Supple, trachea midline. No JVD or lymphadenopathy. CARDIOVASCULAR: Regular rate and rhythm without murmurs, gallops, or rubs. RESPIRATORY: Breath sounds equal bilaterally. No accessory muscle use. Bilat scattered Rhonchi and rales GASTROINTESTINAL: Abdomen soft, non-tender, nondistended. MUSCULOSKELETAL: No cyanosis, or edema. BACK: Nontender without obvious deformity. No CVA tenderness. A/P Assessment and Plan MRSA Pneumonia Bronchiectesis RA Anxiety and depression PLAN: Cont Abx Aerosol nebs Mucomyst nebs Ambulate Archie Fontaine MD Sep 22, 2016 18:58
[2016-09-22] MEDS: RESP: ACETYLCYSTEINE 20% 30 ML NEB NEB SCH (20:01)
[2016-09-22] MEDS: TEMAZEPAM 15 MG CAP PO PRN (22:13)
[2016-09-23 00:52] VITALS: BP 144/95; PULSE 76; RESP 20; TEMP 96.7; O2SAT 96
[2016-09-23] MEDS: RESP: ACETYLCYSTEINE 20% 30 ML NEB NEB SCH ×4 (04:00→22:00)
[2016-09-23] MEDS: diphenhydrAMINE HCL 25 MG CAP PO SCH ×2 (05:35→17:51)
[2016-09-23] MEDS ORDERED: VANCOMYCIN TROUGH XX ONE (05:45)
[2016-09-23 05:55] LABS: AUTOMATED NEUTROPHIL # 8.6 TH/MM3 (1.8-7.7); BASOPHIL % 0.1 % (0.0-2.0); EOSINOPHIL % 0.1 % (0.0-4.0); HEMATOCRIT 31.6 % (35.0-46.0); LYMPHOCYTE # 1.5 TH/MM3 (1.0-4.8); MEAN CORPUSCULAR HEMOGLOBIN 24.9 PG (27.0-34.0); MEAN CORPUSCULAR HGB CONC 31.5 % (32.0-36.0); MONO % 2.7 % (0.0-8.0); NEUT % 83.1 % (16.0-70.0); PLATELET COUNT 473 TH/MM3 (150-450); RED CELL DISTRIBUTION WIDTH 17.6 % (11.6-17.2); WHITE BLOOD COUNT 10.4 TH/MM3 (4.0-11.0)
[2016-09-23 06:03] LABS: HEMO FLAGS AUTO DIFF
[2016-09-23 06:04] LABS: BICARBONATE 30.4 MEQ/L (21.0-32.0)
[2016-09-23] MEDS: VANCOMYCIN INJ 1,000 MG in SODIUM CHLOR 0.9% 250 ML INJ 250 ML IV SCH (06:09)
[2016-09-23 06:29] LABS: PLATELET ESTIMATE SMEAR HIGH (NORMAL); PLATELET MORPHOLOGY NORMAL (NORMAL); ROULEAUX PRESENT (NORMAL); SCAN/DIFF AUTO DIFF CONFIRMED
[2016-09-23 08:00] VITALS: BP 136/89; PULSE 68; RESP 16; TEMP 97.4; O2SAT 98
--- NOTE | 2016-09-23 08:35 | HHI.PR ---
Subjective Remarks Patient states cough is better. No shortness of breath. I did mention to her she was anemic and she states she has had a chronic anemia and had tests for anemia last year. She states she has rheumatoid arthritis but doesn't take any medication for it and is chronically anemic. Her Hg was better today at 9.9. I did start her iron yesterday when her iron level was low. Objective Vitals Vital Signs Date Time Temp Pulse Resp B/P Pulse Ox O2 Delivery O2 Flow Rate FiO2 09/23/16 00:52 96.7 76 20 144/95 96 09/22/16 20:04 98.0 86 20 139/83 98 09/22/16 20:01 96 21 09/22/16 16:00 96.9 100 18 128/82 97 09/22/16 12:00 97.7 83 18 134/92 96 09/22/16 09/22/16 09/23/16 15:00 23:00 07:00 Intake Total 850 ml 250 ml Balance 850 ml 250 ml Intake Oral 850 ml IV Total 250 ml # Voids 4 1 # Bowel Movements 1 Result Diagram: 09/23/16 0545 09/23/16 0545 Other Results Laboratory Tests Test 09/19/16 09/22/16 09/23/16 05:01 09:16 05:45 Total Bilirubin 0.3 MG/DL Aspartate Amino Transf 10 U/L (AST/SGOT) Alanine Aminotransferase 25 U/L (ALT/SGPT) Alkaline Phosphatase 97 U/L Total Protein 6.8 GM/DL Albumin 2.4 GM/DL Reticulocyte Count 1.3 % Absolute Reticulocyte Count 49.0 MIL/L Iron Level 18 MCG/DL Total Iron Binding Capacity 346 MCG/DL Percent Iron Saturation 5.2 % White Blood Count 10.4 TH/MM3 Red Blood Count 4.00 MIL/MM3 Hemoglobin 9.9 GM/DL Hematocrit 31.6 % Mean Corpuscular Volume 79.0 FL Mean Corpuscular Hemoglobin 24.9 PG Mean Corpuscular Hemoglobin 31.5 % Concent Red Cell Distribution Width 17.6 % Platelet Count 473 TH/MM3 Mean Platelet Volume 6.4 FL Neutrophils (%) (Auto) 83.1 % Lymphocytes (%) (Auto) 14.0 % Monocytes (%) (Auto) 2.7 % Eosinophils (%) (Auto) 0.1 % Basophils (%) (Auto) 0.1 % Neutrophils # (Auto) 8.6 TH/MM3 Lymphocytes # (Auto) 1.5 TH/MM3 Monocytes # (Auto) 0.3 TH/MM3 Eosinophils # (Auto) 0.0 TH/MM3 Basophils # (Auto) 0.0 TH/MM3 CBC Comment AUTO DIFF Differential Comment AUTO DIFF CONFIRMED Platelet Estimate HIGH Platelet Morphology Comment NORMAL Basophilic Stippling FAINT Rouleau PRESENT Sodium Level 142 MEQ/L Potassium Level 4.0 MEQ/L Chloride Level 104 MEQ/L Carbon Dioxide Level 30.4 MEQ/L Anion Gap 8 MEQ/L Blood Urea Nitrogen 12 MG/DL Creatinine 0.58 MG/DL Estimat Glomerular Filtration 110 ML/MIN Rate Random Glucose 100 MG/DL Calcium Level 7.9 MG/DL Imaging Last Impressions Chest X-Ray 09/21/16 0000 Signed Impressions: Service Date/Time: Wednesday, September 21, 2016 16:18 - CONCLUSION: PICC line in good position. There continues to patchy density in the right upper and midlung which appears to be improving. Sunil Dong MD Chest CT 09/19/16 0000 Signed Impressions: Service Date/Time: Monday, September 19, 2016 17:06 - CONCLUSION: Areas of consolidation throughout the right upper lung and in the lower lobes bilaterally likely representing areas of inflammatory change and infection. There is some mildly prominent lymph nodes seen in the precarinal area. Sunil Dong MD Last Impressions Chest CT 09/19/16 0000 Signed Impressions: Service Date/Time: Monday, September 19, 2016 17:06 - CONCLUSION: Areas of consolidation throughout the right upper lung and in the lower lobes bilaterally likely representing areas of inflammatory change and infection. There is some mildly prominent lymph nodes seen in the precarinal area. Sunil Dong MD Chest X-Ray 09/18/16 1203 Signed Impressions: Service Date/Time: Sunday, September 18, 2016 12:40 - CONCLUSION: Patchy areas of consolidation and possible cavitary changes throughout the right lung. Sunil Dong MD Last Impressions Chest X-Ray 09/18/16 1203 Signed Impressions: Service Date/Time: Sunday, September 18, 2016 12:40 - CONCLUSION: Patchy areas of consolidation and possible cavitary changes throughout the right lung. Sunil Dong MD Objective Remarks Exam: Pleasant female in no distress HEENT: pupils equal, no scleral icterus, mouth negative Neck: No JVD Heart: RRR with no murmurs Lungs: Less rhonchi and less wheezing today Abdomen: Soft, nontender, no masses Extremities: No edema Neuro: Negative A/P Assessment and Plan Assessment: --Pneumonia--patient has multiple drug allergies to antibiotics (penicillins, cephalosporins; sulfa); MRSA growing out of sputum --Bronchiectasis --Sepsis--clinically resolved --Asthma --Microcytic anemia (hx of chronic anemia--Hg gradually decreasing (was 12.1 on admission, dropped to 9.1 on 09-22-16, but 9.9 on 09-23-16 Plan: Antibiotics managed by ID Continue nebulizer treatments and Solu-Medrol.. Continue SCD's/ADAM hose for DVT prophylaxis. Patient also being seen by bankruptcy law specialist. Continue iron therapy. Mike Hopkins MD Sep 23, 2016 08:35
[2016-09-23] MEDS: FLUTICASONE 100 MCG/VILANTEROL 25 MCG INHALER INH SCH (09:22)
[2016-09-23] MEDS: methylPREDNISolone SOD SUCC 40 MG/1 ML VIAL IV PUSH SCH ×2 (09:24→21:46)
[2016-09-23] MEDS: SODIUM CHLORIDE 0.9% FLUSH 5 ML FLUSH FLUSH SCH ×2 (09:26→21:47)
[2016-09-23] MEDS: LACTOBACILLUS ACIDOPHILUS TAB PO SCH ×2 (09:30→21:47)
[2016-09-23] MEDS: VENLAFAXINE HCL XR 75 MG CAP PO SCH (09:30)
[2016-09-23] MEDS: FERROUS FUMARATE 325 MG TAB (106 MG ELEMENTAL IRON) PO SCH ×2 (09:31→21:47)
[2016-09-23] MEDS: guaiFENesin E.R. 600 MG TAB PO SCH ×2 (09:31→21:47)
[2016-09-23] MEDS: RESP: ALBUTEROL 2.5 MG/IPRATROPIUM 0.5 MG NEB (PRN) NEB ×3 (10:10→22:01)
[2016-09-23 10:13] VITALS: O2SAT 97
[2016-09-23] MEDS: LEVOFLOXACIN 750 MG TAB PO SCH (14:26)
[2016-09-23 16:00] VITALS: BP 138/88; PULSE 84; RESP 16; TEMP 97.8; O2SAT 98
--- NOTE | 2016-09-23 17:21 | HHI.PR ---
Subjective Remarks 51 YOWF with Bronchiectesis,MRSA Pn Feels better Cough, difficult to expactorate no Fever uses Acapella Comfortable Objective Vital Signs Vital Signs Date Time Temp Pulse Resp B/P Pulse Ox O2 Delivery O2 Flow Rate FiO2 09/23/16 10:13 97 21 09/23/16 08:00 97.4 68 16 136/89 98 09/23/16 00:52 96.7 76 20 144/95 96 09/22/16 20:04 98.0 86 20 139/83 98 09/22/16 20:01 96 21 I/O 09/22/16 09/22/16 09/22/16 09/23/16 09/23/16 09/23/16 07:00 15:00 23:00 07:00 15:00 23:00 Intake Total 850 ml 250 ml 675 ml Balance 850 ml 250 ml 675 ml Intake Oral 850 ml 675 ml IV Total 250 ml # Voids 1 4 1 3 # Bowel Movements 1 1 Result Diagram: 09/23/16 0545 09/23/16 0545 Objective Remarks GENERAL: MBMN WF,NAD SKIN: Warm and dry. HEAD: Normocephalic. EYES: No scleral icterus. No injection or drainage. NECK: Supple, trachea midline. No JVD or lymphadenopathy. CARDIOVASCULAR: Regular rate and rhythm without murmurs, gallops, or rubs. RESPIRATORY: Breath sounds equal bilaterally. No accessory muscle use. Bilat scattered Rhonchi and rales GASTROINTESTINAL: Abdomen soft, non-tender, nondistended. MUSCULOSKELETAL: No cyanosis, or edema. BACK: Nontender without obvious deformity. No CVA tenderness. A/P Assessment and Plan MRSA Pneumonia Bronchiectesis RA Anxiety and depression PLAN: Cont Abx Aerosol nebs Mucomyst nebs Ambulate Stable on RA Archie Fontaine MD Sep 23, 2016 17:21
--- NOTE | 2016-09-23 18:21 | HHI.IDPN ---
Subjective Subjective Remarks Notes reviewed No fever Feels better CXR improving infiltrates Antibiotics Vancomycin Levaquin oral Lines PICC Past Medical History Bronchiectasis Asthma for 20 years Depression which is controlled well Recurrent pneumonia Restless leg syndrome, that has resolved. Rheumatoid arthritis Past Surgical History Bilateral sinus surgery apparently twice Bilateral tubal ligation Tonsillectomy Appendectomy Allergies: Coded Allergies: Aspirin (Verified Allergy, Severe, shock, 09/18/16) Cephalosporins (Verified Allergy, Severe, Anaphylaxis, 09/18/16) Erythromycin (Verified Allergy, Severe, Anaphylaxis, 09/18/16) Penicillin (Verified Allergy, Severe, Anaphylaxis, 09/18/16) Sulfa (Verified Allergy, Severe, Anaphylaxis, 09/18/16) Uncoded Allergies: NSAIDS (Allergy, Severe, Anaphylaxis, 08/09/12) Objective . Vital Signs Date Time Temp Pulse Resp B/P Pulse Ox O2 Delivery O2 Flow Rate FiO2 09/23/16 16:00 97.8 84 16 138/88 98 09/23/16 10:13 97 21 09/23/16 08:00 97.4 68 16 136/89 98 09/23/16 00:52 96.7 76 20 144/95 96 09/22/16 20:04 98.0 86 20 139/83 98 09/22/16 20:01 96 21 09/22/16 09/22/16 09/23/16 15:00 23:00 07:00 Intake Total 850 ml 250 ml Balance 850 ml 250 ml Intake Oral 850 ml IV Total 250 ml # Voids 4 1 # Bowel Movements 1 . Laboratory Tests Test 09/22/16 09/22/16 09/23/16 06:12 09:16 05:45 White Blood Count 11.1 TH/MM3 10.4 TH/MM3 Red Blood Count 3.81 MIL/MM3 4.00 MIL/MM3 Hemoglobin 9.1 GM/DL 9.9 GM/DL Hematocrit 30.0 % 31.6 % Mean Corpuscular Volume 78.7 FL 79.0 FL Mean Corpuscular Hemoglobin 24.0 PG 24.9 PG Mean Corpuscular Hemoglobin 30.5 % 31.5 % Concent Red Cell Distribution Width 17.3 % 17.6 % Platelet Count 448 TH/MM3 473 TH/MM3 Mean Platelet Volume 7.2 FL 6.4 FL Neutrophils (%) (Auto) 81.0 % 83.1 % Lymphocytes (%) (Auto) 14.5 % 14.0 % Monocytes (%) (Auto) 3.9 % 2.7 % Eosinophils (%) (Auto) 0.1 % 0.1 % Basophils (%) (Auto) 0.5 % 0.1 % Neutrophils # (Auto) 9.0 TH/MM3 8.6 TH/MM3 Lymphocytes # (Auto) 1.6 TH/MM3 1.5 TH/MM3 Monocytes # (Auto) 0.4 TH/MM3 0.3 TH/MM3 Eosinophils # (Auto) 0.0 TH/MM3 0.0 TH/MM3 Basophils # (Auto) 0.1 TH/MM3 0.0 TH/MM3 CBC Comment AUTO DIFF AUTO DIFF Differential Comment AUTO DIFF AUTO DIFF CONFIRMED CONFIRMED Basophilic Stippling FAINT FAINT Rouleau PRESENT PRESENT Reticulocyte Count 1.3 % Absolute Reticulocyte Count 49.0 MIL/L Platelet Estimate HIGH Platelet Morphology Comment NORMAL Laboratory Tests Test 09/22/16 09/23/16 09:16 05:45 Iron Level 18 MCG/DL Total Iron Binding Capacity 346 MCG/DL Percent Iron Saturation 5.2 % Sodium Level 142 MEQ/L Potassium Level 4.0 MEQ/L Chloride Level 104 MEQ/L Carbon Dioxide Level 30.4 MEQ/L Anion Gap 8 MEQ/L Blood Urea Nitrogen 12 MG/DL Creatinine 0.58 MG/DL Estimat Glomerular Filtration 110 ML/MIN Rate Random Glucose 100 MG/DL Calcium Level 7.9 MG/DL Microbiology Date/Time Procedure Status Source Growth 09/23/16 14:15 Stool Occult Blood (FABIENNE) - Final Complete Stool Stool HEMOCCULT NEGATIVE Imaging Chest CT 09/19/16 0000 Signed Impressions: Service Date/Time: Monday, September 19, 2016 17:06 - CONCLUSION: Areas of consolidation throughout the right upper lung and in the lower lobes bilaterally likely representing areas of inflammatory change and infection. There is some mildly prominent lymph nodes seen in the precarinal area. Sunil Dong MD Chest X-Ray 09/18/16 1203 Signed Impressions: Service Date/Time: Sunday, September 18, 2016 12:40 - CONCLUSION: Patchy areas of consolidation and possible cavitary changes throughout the right lung. Sunil Dong MD Physical Exam GENERAL: awake and alert, NAD SKIN: Cool and dry. No generalized rash or ecchymosis. HEENT: [place] conjunctivae. No scleral icterus. Moist oral mucosa, no oral thrush. NECK: Supple, nontender, no meningeal signs. CARDIOVASCULAR: Regular rate and rhythm without murmurs, gallops, or rubs. RESPIRATORY: Better air movement, just few rhonchi L GASTROINTESTINAL: Abdomen soft, non-tender, nondistended. Bowel sounds are present and normoactive. No organomegaly. No guarding. MUSCULOSKELETAL: Extremities without clubbing, cyanosis, or edema. No calf tenderness. Negative Homans sign bilaterally. NEUROLOGICAL: NOn-focal PSYCH: Normal affect, calm and cooperative LINE: PICC with no evidence of infection Assessment & Plan Remarks IMPRESSION Community-acquired pneumonia, patient with underlying bronchiectasis - no evidence of cavitation on CT chest Rheumatoid arthritis Multiple antibiotic allergies some reaction severe with anaphylaxis RECOMMENDATION IV Vancomycin - premedicate roney with long list of allergies Give Levaquin until 3/24 CM to arrange for home IV vs outpatient - ideally once a day for outpatient infusion - BID dosing can be easily done at home Possible D/C tomorrow once Abx arranged and Vanco dosing determined Explained plan to patient Christina Sethi MD Sep 23, 2016 18:21
[2016-09-23] MEDS: VANCOMYCIN INJ 1,100 MG in SODIUM CHLOR 0.9% 250 ML INJ 250 ML IV SCH (18:31)
[2016-09-23 20:48] VITALS: BP 147/86; PULSE 90; RESP 16; TEMP 96.1; O2SAT 99
[2016-09-23] MEDS: TEMAZEPAM 15 MG CAP PO PRN (21:49)
[2016-09-23 22:03] VITALS: O2SAT 98
[2016-09-24 00:52] VITALS: BP 135/90; PULSE 85; RESP 16; TEMP 97.3; O2SAT 93
[2016-09-24] MEDS: RESP: ACETYLCYSTEINE 20% 30 ML NEB NEB SCH ×2 (04:00→09:39)
[2016-09-24] MEDS: diphenhydrAMINE HCL 25 MG CAP PO SCH (05:36)
[2016-09-24] MEDS: VANCOMYCIN INJ 1,100 MG in SODIUM CHLOR 0.9% 250 ML INJ 250 ML IV SCH (06:06)
--- NOTE | 2016-09-24 07:35 | HHI.PR ---
Subjective Remarks Patient feeling much better. She has been walking in the room without significant shortness of breath. She does admit to some fatigue since she has been lying in bed for several days Less cough and less shortness of breath. Desires discharge home. Objective Vitals Vital Signs Date Time Temp Pulse Resp B/P Pulse Ox O2 Delivery O2 Flow Rate FiO2 09/24/16 00:52 97.3 85 16 135/90 93 09/23/16 22:03 98 21 09/23/16 20:48 96.1 90 16 147/86 99 09/23/16 16:00 97.8 84 16 138/88 98 09/23/16 10:13 97 21 09/23/16 08:00 97.4 68 16 136/89 98 09/23/16 09/23/16 09/24/16 15:00 23:00 07:00 Intake Total 675 ml 335 ml Balance 675 ml 335 ml Intake Oral 675 ml IV Total 335 ml # Voids 3 3 1 # Bowel Movements 1 GENERAL: No acute distress, cooperative with exam. SKIN: Warm and dry. HEAD: Normocephalic. Corrective eyewear and place. EYES: No scleral icterus. No injection or drainage. NECK: Supple, trachea midline. No JVD or lymphadenopathy. CARDIOVASCULAR: Regular rate and rhythm without murmurs, gallops, or rubs. RESPIRATORY: Fair air movement bilaterally with noted coarse bronchovesicular sounds in the mid lung [place]. No expiratory wheeze. Coarse rhonchi at the bases. GASTROINTESTINAL: Abdomen soft, non-tender, nondistended. MUSCULOSKELETAL: No cyanosis, or edema. Result Diagram: 09/23/16 0545 09/23/16 0545 Imaging Last Impressions Chest X-Ray 09/21/16 0000 Signed Impressions: Service Date/Time: Wednesday, September 21, 2016 16:18 - CONCLUSION: PICC line in good position. There continues to patchy density in the right upper and midlung which appears to be improving. Sunil Dong MD Chest CT 09/19/16 0000 Signed Impressions: Service Date/Time: Monday, September 19, 2016 17:06 - CONCLUSION: Areas of consolidation throughout the right upper lung and in the lower lobes bilaterally likely representing areas of inflammatory change and infection. There is some mildly prominent lymph nodes seen in the precarinal area. Sunil Dong MD Last Impressions Chest CT 09/19/16 0000 Signed Impressions: Service Date/Time: Monday, September 19, 2016 17:06 - CONCLUSION: Areas of consolidation throughout the right upper lung and in the lower lobes bilaterally likely representing areas of inflammatory change and infection. There is some mildly prominent lymph nodes seen in the precarinal area. Sunil Dong MD Chest X-Ray 09/18/16 1203 Signed Impressions: Service Date/Time: Sunday, September 18, 2016 12:40 - CONCLUSION: Patchy areas of consolidation and possible cavitary changes throughout the right lung. Sunil Dong MD Last Impressions Chest X-Ray 09/18/16 1203 Signed Impressions: Service Date/Time: Sunday, September 18, 2016 12:40 - CONCLUSION: Patchy areas of consolidation and possible cavitary changes throughout the right lung. Sunil Dogn MD Objective Remarks Exam: Pleasant female in no distress HEENT: pupils equal, no scleral icterus, mouth negative Neck: No JVD Heart: RRR with no murmurs Lungs: Less rhonchi and less wheezing today Abdomen: Soft, nontender, no masses Extremities: No edema Neuro: Negative Urinary Catheter: No Vascular Central Line Catheter: No Assessment to: Continue Line: PICC Side: Right Location: Antecubital A/P Problem List: (1) Severe sepsis Status: Resolved Plan: Clinically resolved. (2) Pneumonia Status: Acute Plan: MRSA pneumonia clinically improved. We'll arrange for home antibiotics. Discussed using Zyvox but patient reports it is too expensive. Appreciate infectious disease and pulmonology input. (3) Bronchiectasis Status: Chronic Plan: As above. (4) Rheumatoid arthritis Status: Chronic Plan: Outpatient treatment. (5) Anemia Status: Chronic Plan: Microcytic anemia (hx of chronic anemia-- Hb gradually decreasing (was 12.1 on admission, dropped to 9.1 on 09-22-16, but 9.9 on 09-23-16) patient reports this is a chronic problem and relatively stable per her report. She believes it may be associated with her long-standing rheumatoid arthritis. Relatively asymptomatic. We'll follow as an outpatient with her primary care physician. Has reported anemia workup in the past. Discharge Planning Hopefully discharge home later today once antibiotics are arranged. Problem Qualifiers (1) Pneumonia: Qualified Code: J15.212 - Pneumonia of right lung due to methicillin resistant Staphylococcus aureus (MRSA), unspecified part of lung (2) Bronchiectasis: Qualified Code: J47.0 - Bronchiectasis with acute lower respiratory infection Livan Thomas MD PhD Sep 24, 2016 07:35
[2016-09-24] MEDS ORDERED: PRED20 PO (07:39)
[2016-09-24] MEDS ORDERED: HEMO324T PO (07:39)
[2016-09-24] MEDS ORDERED: LEVA750T PO (07:39)
[2016-09-24] MEDS ORDERED: ACET20SO3 NEB (07:39)
--- NOTE | 2016-09-24 07:44 | HHI.DS ---
Discharge Summary Admission Date Sep 18, 2016 at 14:10 Admitting Diagnosis sepsis, pneumonia, respiratory distress (1) Severe sepsis Diagnosis: Principal (2) Pneumonia Diagnosis: Principal (3) Bronchiectasis Diagnosis: Principal (4) Rheumatoid arthritis Diagnosis: Secondary (5) Anemia Diagnosis: Secondary Consultants Infectious Disease, Dr Sethi Pulmonology, Dr Fontaine Brief History 51 year-old female with a history of bronchiectasis and recurrent pneumonia came to the ED for evaluation of SOB/respiratory distress and cough production of brown sputum x 1 week duration along with febrile episode. Patient states, she completed a ten-day course of by mouth Levaquin 09/16/16 and a 5 day course of Medrol pack 09/11/16. She recently returned from a road trip on 09/16/16 after a weekend in [place]. Prior to coming to the ED patient reported febrile episode for which she took Tylenol. Chest x-ray finding of patchy area of consolidation and patient will elevated WBC. She was tachycardic with oxygen saturation 92% on room air arrival in the ED. She denies any GI bleed, hemoptysis, hematuria. CBC/BMP: 09/23/16 0545 09/23/16 0545 Significant Findings Laboratory Tests Test 09/22/16 09/22/16 09/23/16 06:12 09:16 05:45 White Blood Count 11.1 TH/MM3 (4.0-11.0) Red Blood Count 3.81 MIL/MM3 (4.00-5.30) Hemoglobin 9.1 GM/DL 9.9 GM/DL (11.6-15.3) (11.6-15.3) Hematocrit 30.0 % 31.6 % (35.0-46.0) (35.0-46.0) Mean Corpuscular Volume 78.7 FL 79.0 FL (80.0-100.0) (80.0-100.0) Mean Corpuscular Hemoglobin 24.0 PG 24.9 PG (27.0-34.0) (27.0-34.0) Mean Corpuscular Hemoglobin 30.5 % 31.5 % Concent (32.0-36.0) (32.0-36.0) Red Cell Distribution Width 17.3 % 17.6 % (11.6-17.2) (11.6-17.2) Neutrophils (%) (Auto) 81.0 % 83.1 % (16.0-70.0) (16.0-70.0) Neutrophils # (Auto) 9.0 TH/MM3 8.6 TH/MM3 (1.8-7.7) (1.8-7.7) Basophilic Stippling FAINT (NORMAL) FAINT (NORMAL) Rouleau PRESENT PRESENT (NORMAL) (NORMAL) Iron Level 18 MCG/DL (50-170) Percent Iron Saturation 5.2 % (20-50) Platelet Count 473 TH/MM3 (150-450) Mean Platelet Volume 6.4 FL (7.0-11.0) Platelet Estimate HIGH (NORMAL) Calcium Level 7.9 MG/DL (8.5-10.1) PE at Discharge Exam: Pleasant female in no distress HEENT: pupils equal, no scleral icterus Neck: No JVD Heart: RRR with no murmurs Lungs : few rhonchi at bases, no wheezing Abdomen: Soft, nontender, no masses Extremities: No edema Neuro: nonfocal Hospital Course Patient with chronic bronchiectasis and history of recurrent pneumonia presented with dyspnea and hypoxia. She was noted to have significant pneumonic infiltrate on the right which was confirmed with subsequent CT scan of the chest. There was no obvious cavitary lesion, abscess or empyema. She was started on IV antibiotics probably and responded clinically quite well. It is noted that antibiotic selection was somewhat limited due to her significant allergic reaction history. She was evaluated by pulmonology and infectious disease while in the hospital. Prior to discharge she was ambulating without difficulty and tolerating oral intake well. Her chest x-ray was showing improvement already as well. She was noted to be somewhat anemic with hemoglobin stabilized in the upper 9 region. This reportedly is chronic per patient. She notes a prior outpatient anemia workup. She was minimally symptomatic from this and it was thought best to follow this as an outpatient at it is not an acute, new onset issue. Pt Condition on Discharge: Stable Discharge Disposition: Disch w/ Home Health Serv Discharge Instructions DIET: Follow Instructions for: Heart Healthy Diet Speech Therapy-Diet Recommends: Regular Activities you can perform: Regular-No Restrictions Follow up Referrals: Infectious Disease PCP Follow-up New Orders: CBC WITH DIFF - 2-3 Days CREATININE - 2-3 Days New Medications: Prednisone (Prednisone) 20 Mg Tab 20 MG PO DIRECTED 1 pill twice a day x 3 days, then 1 pill daily x 3 days, then 1/2 pill daily x 4 days, then stop Inflammation #11 Ref 0 TAB Vancomycin HCl in Sodium Chlor (Vancomycin Hydrochloride/ 1.5-0.9 gm/250Ml-%) 1 Cindi Cindi 1.5 GM IV BID per home health. infection Days 10 BAG Acetylcysteine Liq/Neb (Acetylcysteine Liq/Neb) 200 mg/ml Soln 2 ML NEB Q6HR NEB pneumonia Days 14 ML Ferrous Fumarate (Hemocyte) 324 Mg Tab 325 MG PO Q12HR anemia #60 TAB Levofloxacin (Levaquin) 750 Mg Tab 750 MG PO DAILY@11 pneumonia Days 4 TAB Continued Medications: Albuterol 18 GM Inh (Ventolin Hfa 18 GM Inh) 90 Mcg/Act Aer 2 PUFF INH Q4H PRN SHORTNESS OF BREATH #1 Ref 0 INHALER Albuterol Neb (Albuterol Neb) 2.5 Mg/0.5 Ml Neb 2.5 MG NEB BID Note: The Albuterol Sulfate Inhalation Solution is concentrated and must be diluted. Read complete instructions carefully before using. Breathing Treatment #1 Ref 0 NEBULE Fluticasone Nasal [place] (Flonase Nasal [place]) 50 Mcg/Act [place] 50 MCG EACH NARE BID Allergies #1 Ref 0 BOTTLE Fluticasone-Vilanterol Inh (Breo Ellipta Inh) 100-25 Mcg/Act Inh 1 PUFF INH DAILY Use daily at the same time. #1 Ref 0 INHALER Venlafaxine ER 24 HR (Effexor XR 24 HR) 150 Mg Cap 150 MG PO DAILY #30 Ref 0 CAP Livan Thomas MD PhD Sep 24, 2016 07:44
[2016-09-24 08:00] VITALS: BP 155/100; PULSE 75; RESP 20; TEMP 95.7; O2SAT 98
[2016-09-24] MEDS: FERROUS FUMARATE 325 MG TAB (106 MG ELEMENTAL IRON) PO SCH (08:29)
[2016-09-24] MEDS: LACTOBACILLUS ACIDOPHILUS TAB PO SCH (08:29)
[2016-09-24] MEDS: guaiFENesin E.R. 600 MG TAB PO SCH (08:29)
[2016-09-24] MEDS: VENLAFAXINE HCL XR 75 MG CAP PO SCH (08:30)
[2016-09-24] MEDS: FLUTICASONE 100 MCG/VILANTEROL 25 MCG INHALER INH SCH (08:30)
[2016-09-24] MEDS: methylPREDNISolone SOD SUCC 40 MG/1 ML VIAL IV PUSH SCH (08:31)
[2016-09-24] MEDS: SODIUM CHLORIDE 0.9% FLUSH 5 ML FLUSH FLUSH SCH (08:32)
[2016-09-24] MEDS: RESP: ALBUTEROL 2.5 MG/IPRATROPIUM 0.5 MG NEB (PRN) NEB (09:39)
--- NOTE | 2016-09-24 10:21 | HHI.FF ---
Infusion Therapy Location of Infusion Therapy: Home Health Care IV Infusion Order Patient Information Patient Weight 62.3 kg Diagnosis: Diagnosis Bilateral PNA, MRSA Acute exacerbation, bronchiectasis Coded Allergies: Aspirin (Verified Allergy, Severe, shock, 09/18/16) Cephalosporins (Verified Allergy, Severe, Anaphylaxis, 09/18/16) Erythromycin (Verified Allergy, Severe, Anaphylaxis, 09/18/16) Penicillin (Verified Allergy, Severe, Anaphylaxis, 09/18/16) Sulfa (Verified Allergy, Severe, Anaphylaxis, 09/18/16) *MDRO Multi-Drug Resistant Organism (Verified Adverse Reaction, Unknown, ) MRSA (sputum)-09/20/16 Uncoded Allergies: NSAIDS (Allergy, Severe, Anaphylaxis, 08/09/12) Administer Medication Vancomycin 1.5 grams IV q 12 hours Stop Treatment: Oct 04, 2016 Additional Information Venous access: PICC Line Additional Instructions [x] Peripheral flush and dressing changes per protocol [x] 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 [] May leave port accessed during therapy. [] May leave peripheral site accessed for duration of therapy. [x] If patient has SOB or respiratory distress, check oxygen saturation. If less than 90% or clinical signs of respiratory distress, administer oxygen at 2 L/min. via nasal cannula and notify physician. [x] Anaphylaxis/Reaction orders: * Stop infusion. * Keep IV line open with saline flush. * Notify physician. * Monitor vital signs every 15 minutes until symptoms resolve. * Check Oxygen saturation; Oxygen at 2 L/min. via nasal cannula if less than 90% or clinical signs of respiratory distress. * Administer diphenhydramine (Benadryl) 25 mg IV STAT, (unless patient has received as pre-med). May repeat once, if necessary. * Solu-Cortef 250 mg IVP over 30-60 seconds, use 100 mg vials for each dissolution. * Epinephrine (1mg/1 ml) 0.3 mg subcutaneously or IVP now with any signs of respiratory distress. * Check with physician for new additional pre-med orders if patient is re- challenged or re-treated. [x] May remove PICC line when treatment complete, after confirming with Physician. [x] If the patient is admitted to the hospital, the ED, or transferred via [facility] , complete transfer form including medication reconciliation order sheet. Laboratory Tests Weekly Labs: CBC w/diff, Creatinine (Labs every Saturday - copy to me), Vancomycin Trough Additional Information Ask pharm to assist with dosing, aim for trough 12-18 Christina Sethi MD Sep 24, 2016 10:21
[2016-09-24] MEDS: LEVOFLOXACIN 750 MG TAB PO SCH (11:50)
[2016-09-24 12:00] VITALS: BP 145/95; PULSE 89; RESP 20; TEMP 98; O2SAT 97
[2016-09-24] MEDS ORDERED: [UNRECOGNIZED DRUG - CODE] IV (12:06)
[2016-09-25] MEDS ORDERED: VANCOMYCIN TROUGH XX ONE (05:45)
== END 2016-09-24 15:29 | disposition home or self-care (01) | DRG 871 ==
LOC: PHED 11:27 → PHEDA 14:10 → PH3A 15:56
PROVIDERS: ADMIT Family Medicine; ATTEND Family Medicine
PROC: 02HV33Z Insertion of Infusion Device into Superior Vena Cava, Percutaneous Approach (ICD-10-PCS; principal; 2016-09-21)
DX: A41.9 Sepsis, unspecified organism (principal); J15.212 Pneumonia due to Methicillin resistant Staphylococcus aureus; J47.0 Bronchiectasis with acute lower respiratory infection; M06.9 Rheumatoid arthritis, unspecified; R65.20 Severe sepsis without septic shock; F32.9 Major depressive disorder, single episode, unspecified; F41.9 Anxiety disorder, unspecified; Z88.1 Allergy status to other antibiotic agents; J45.909 Unspecified asthma, uncomplicated; D50.9 Iron deficiency anemia, unspecified
CPT/HCPCS: 36569; 71010; 71250; 76937; 80048; 80053; 80202; 82272; 83540; 83550; 83605; 85025; 85044; 86403; 87040; 87070; 87147; 87186; 87205; 87449; 94640; 94664; 94667; 94668; 96365; 96375; J1642; J1956; J2405; J2920; J2930; J3370; J7030; J7050; J7608

== ENCOUNTER 2017-10-02 17:06 | Inpatient (IN) | payer OTHER ==
[~2017-10-02] VITALS: Ht 162.6 cm; Wt 64.7 kg
[~2017-10-02 17:06] MED LIST changes: +ACET20SO3 NEB; +ALBU.5I NEB; -ALBU0.086 NEB; -ALBU2.5I INH; -FLON0.053; +FLUT1INH INH; +FLUT1SPR5 EACH NARE; +HEMO324T PO; -IPRA0.02 NEB; -LEVA500T PO; +LEVA750T PO; -MEDR4PAK3 PO; +PRED20 PO; +VENTAER INH; +[UNRECOGNIZED DRUG - CODE] IV
[2017-10-02 17:15] VITALS: BP 144/84; PULSE 82; RESP 16; TEMP 98.7; O2SAT 97
[2017-10-02] MEDS ORDERED: SODIUM CHLORIDE 0.9% FLUSH 10 ML FLUSH IVF PRN (17:45)
[2017-10-02] MEDS ORDERED: CIPR-9 PO (17:57)
--- NOTE | 2017-10-02 17:59 | PD ---
HPI . Cough and chest tightness Chief Complaint: Respiratory Symptoms Time Seen by Provider: 17:44 Travel History International Travel<30 days: No Contact w/Intl Traveler<30days: No Traveled to known affect area: No History of Present Illness HPI This patient presents with cough and tightness in her chest. She reports that she had a bronchoscopy done on August 23 because of bronchiectasis and "shadows" on her CT. She went to the doctor last week and got the results of the bronchoscopy. Cultures were positive for Pseudomonas. She was placed on Cipro. She has been on Cipro for 5 days but states that she is getting worse rather than better. She admits that she has a nebulizer machine at home but has not been using it. She also has an inhaler and used it last yesterday. She takes Brio regularly and has been compliant with that. She states that she had a fever last week but has not been running a fever this week. No modifying factors. Symptoms are mild. PFSH Past Medical History Arthritis: Yes (RA) Asthma: Yes Anxiety: Yes Depression: Yes Heart Rhythm Problems: No Cancer: No Cardiovascular Problems: No High Cholesterol: No Chest Pain: No Congestive Heart Failure: No COPD: Yes (BRONCHIECTASIS) Cerebrovascular Accident: No Diabetes: No Diminished Hearing: No Endocrine: No GERD: No Glaucoma: No Genitourinary: No Hepatitis: No Hiatal Hernia: No Hypertension: No Immune Disorder: Yes (rheumatoid arthritis) Kidney Stones: No Musculoskeletal: Yes Neurologic: No Psychiatric: Yes Reproductive: No Respiratory: Yes Immunizations Current: Yes Migraines: No Pneumonia: Yes Renal Failure: No Seizures: No Sleep Apnea: No Thyroid Disease: No Ulcer: No Influenza Vaccination: No ?: Not : 3 Para: 3 Tubal Ligation: Yes Past Surgical History Abdominal Surgery: Yes (appendectomy) AICD: No Appendectomy: Yes ( A CHILD) Cardiac Surgery: No Endocrine Surgery: No Eye Surgery: No Genitourinary Surgery: No Gynecologic Surgery: Yes (tubaligaton) Joint Replacement: No Oral Surgery: Yes (nasal polyps removed 3 times) Pacemaker: No Thoracic Surgery: Yes (bronchoscopy) Tonsillectomy: Yes Other Surgery: Yes (SINUS NASAL POLYPS REMOVED) Social History Alcohol Use: Yes (occ) Tobacco Use: No Substance Use: No Allergies-Medications (Allergen,Severity, Reaction): Coded Allergies: Sulfa (Sulfonamide Antibiotics) (Unverified Allergy, Severe, Anaphylaxis, 10/02/17) aspirin (Unverified Allergy, Severe, shock, 10/02/17) cefepime (Unverified Allergy, Severe, Anaphylaxis, 10/02/17) ceftaroline fosamil (Unverified Allergy, Severe, Anaphylaxis, 10/02/17) erythromycin base (Unverified Allergy, Severe, Anaphylaxis, 10/02/17) penicillin G (Unverified Allergy, Severe, Anaphylaxis, 10/02/17) *MDRO Multi-Drug Resistant Organism (Verified Adverse Reaction, Unknown, ) MRSA (sputum)-09/20/16 Uncoded Allergies: NSAIDS (Allergy, Severe, Anaphylaxis, 08/09/12) Reported Meds & Prescriptions Reported Meds & Active Scripts Active Reported Cipro (Ciprofloxacin HCl) 500 Mg Tab 500 Mg PO BID Breo Ellipta Inh (Fluticasone/Vilanterol) 100-25 Mcg/Act Inh 1 Puff INH DAILY Use daily at the same time. Albuterol Neb (Albuterol Sulfate) 2.5 Mg/0.5 Ml Neb 2.5 Mg NEB BID Note: The Albuterol Sulfate Inhalation Solution is concentrated and must be diluted. Read complete instructions carefully before using. Ventolin Hfa 18 GM Inh (Albuterol Sulfate) 90 Mcg/Act Aer 2 Puff INH Q4H PRN Flonase Nasal [place] (Fluticasone Nasal [place]) 50 Mcg/Act [place] 50 Mcg EACH NARE BID Effexor XR 24 HR (Venlafaxine HCl) 150 Mg Cap 150 Mg PO DAILY Review of Systems Except as stated in HPI: all other systems reviewed are Neg Respiratory: Positive: Cough, Shortness of Breath Physical Exam Narrative GENERAL: This patient looks well. SKIN: warm/dry. Normal color and turgor. HEAD: Normocephalic. Atraumatic. EYES: Pupils equal and round. No scleral icterus. No injection or drainage. ENT: No nasal bleeding or discharge. Mucous membranes pink and moist. NECK: Trachea midline. Full range of motion without pain.. CARDIOVASCULAR: Regular rate and rhythm. Heart sounds normal. RESPIRATORY: No accessory muscle use. Diffuse coarse inspiratory and expiratory wheezing. MUSCULOSKELETAL: No obvious deformities. NEUROLOGICAL: Awake and alert. No obvious cranial nerve deficits. Motor grossly within normal limits. Normal speech. PSYCHIATRIC: Appropriate mood and affect; insight and judgment normal. Data Data Last Documented VS Vital Signs Date Time Temp Pulse Resp B/P (MAP) Pulse Ox O2 Delivery O2 Flow Rate FiO2 10/02/17 18:29 85 18 121/78 (92) 97 Aerosol Mask 10/02/17 17:15 98.7 Orders Orders Complete Blood Count With Diff (10/02/17 17:45) Comprehensive Metabolic Panel (10/02/17 17:45) Lactic Acid Sepsis Protocol (10/02/17 17:45) Blood Culture (10/02/17 17:45) Chest, Pa & Lat (10/02/17 17:45) Iv Access Insert/Monitor (10/02/17 17:45) Sodium Chloride 0.9% Flush (Ns Flush) (10/02/17 17:45) Albuterol-Ipratropium Neb (Duoneb Neb) (10/02/17 18:00) Guaifenesin Er (Mucinex Er) (10/02/17 18:00) Aztreonam Inj (Azactam Inj) (10/02/17 18:30) Admit Order (Ed Use Only) (10/02/17 18:43) Labs Laboratory Tests Test 10/02/17 17:50 10/02/17 17:59 White Blood Count 8.2 TH/MM3 Red Blood Count 4.65 MIL/MM3 Hemoglobin 11.5 GM/DL Hematocrit 35.8 % Mean Corpuscular Volume 76.9 FL Mean Corpuscular Hemoglobin 24.8 PG Mean Corpuscular Hemoglobin Concent 32.3 % Red Cell Distribution Width 19.1 % Platelet Count 424 TH/MM3 Mean Platelet Volume 7.4 FL Neutrophils (%) (Auto) 54.4 % Lymphocytes (%) (Auto) 25.4 % Monocytes (%) (Auto) 3.9 % Eosinophils (%) (Auto) 13.8 % Basophils (%) (Auto) 2.5 % Neutrophils # (Auto) 4.5 TH/MM3 Lymphocytes # (Auto) 2.1 TH/MM3 Monocytes # (Auto) 0.3 TH/MM3 Eosinophils # (Auto) 1.1 TH/MM3 Basophils # (Auto) 0.2 TH/MM3 CBC Comment AUTO DIFF Differential Comment AUTO DIFF CONFIRMED Ovalocytes 1+ Blood Urea Nitrogen 10 MG/DL Creatinine 0.83 MG/DL Random Glucose 88 MG/DL Total Protein 8.6 GM/DL Albumin 3.5 GM/DL Calcium Level 8.8 MG/DL Alkaline Phosphatase 144 U/L Aspartate Amino Transf (AST/SGOT) 47 U/L Alanine Aminotransferase (ALT/SGPT) 39 U/L Total Bilirubin 0.2 MG/DL Sodium Level 137 MEQ/L Potassium Level 4.2 MEQ/L Chloride Level 105 MEQ/L Carbon Dioxide Level 28.6 MEQ/L Anion Gap 3 MEQ/L Estimat Glomerular Filtration Rate 72 ML/MIN Lactic Acid Level 0.8 mmol/L [facility] Medical Decision Making Medical Screen Exam Complete: Yes Emergency Medical Condition: Yes Medical Record Reviewed: Yes (Last visit here was a year ago for sepsis and pneumonia.) Differential Diagnosis Differential diagnosis includes but is not limited to viral respiratory illness , bronchitis, pneumonia, allergies, CHF, asthma/COPD. Narrative Course This patient presents stating that she has a cough and tightness in her chest. She has a history of bronchiectasis. She had a bronchoscopy done about 6 weeks ago. She found out that the cultures from that bronchoscopy were positive for Pseudomonas last week. She has been on Cipro for 5 days. She states that she is getting worse rather than better. She is a [facility] patient and is followed by Dr. Montgomery. CBC & BMP Diagram 10/02/17 17:50 Total Protein 8.6 H, Albumin 3.5, Calcium Level 8.8, Alkaline Phosphatase 144 H , Aspartate Amino Transf (AST/SGOT) 47 H, Alanine Aminotransferase (ALT/SGPT) 39 , Total Bilirubin 0.2 LA 0.8 I have queried up to date regarding the treatment of Pseudomonas pneumonia. She is allergic to penicillin, cephalosporins and Septra. The next antibiotic recommended is aztreonam 2 g every 8 hours. The patient states that she is followed by Dr. Robert. I have attempted to place a consultation for him but his name does not come up on our list of hr leader. I spoke with Dr. Zurita regarding admission. He asked me to check with Dr. Montgomery to make sure that she did not want to admit her own patient. Will call Dr. Montgomery's office but got an answering machine. Diagnosis Primary Impression: Pneumonia of both lungs due to Pseudomonas species Qualified Codes: J15.1 - Pneumonia due to Pseudomonas Admitting Information Admitting Physician Requests: Admit Condition: Stable Celeste Rivera MD Oct 02, 2017 17:59
[2017-10-02] MEDS ORDERED: guaiFENesin E.R. 600 MG TAB PO ONE (18:00)
[2017-10-02 18:10] LABS: AUTOMATED NEUTROPHIL # 4.5 TH/MM3 (1.8-7.7); BASOPHIL # 0.2 TH/MM3 (0-0.2); BASOPHIL % 2.5 % (0.0-2.0); EOSINOPHIL # 1.1 TH/MM3 (0-0.4); EOSINOPHIL % 13.8 % (0.0-4.0); HEMATOCRIT 35.8 % (35.0-46.0); HEMOGLOBIN 11.5 GM/DL (11.6-15.3); LYMPH % 25.4 % (9.0-44.0); LYMPHOCYTE # 2.1 TH/MM3 (1.0-4.8); MEAN CELL VOLUME 76.9 FL (80.0-100.0); MEAN CORPUSCULAR HEMOGLOBIN 24.8 PG (27.0-34.0); MEAN CORPUSCULAR HGB CONC 32.3 % (32.0-36.0); MEAN PLATELET VOLUME 7.4 FL (7.0-11.0); MONO % 3.9 % (0.0-8.0); MONOCYTE # 0.3 TH/MM3 (0-0.9); NEUT % 54.4 % (16.0-70.0); PLATELET COUNT 424 TH/MM3 (150-450); RED BLOOD COUNT 4.65 MIL/MM3 (4.00-5.30); RED CELL DISTRIBUTION WIDTH 19.1 % (11.6-17.2); WHITE BLOOD COUNT 8.2 TH/MM3 (4.0-11.0)
[2017-10-02] MEDS: RESP: ALBUTEROL 2.5 MG/IPRATROPIUM 0.5 MG NEB (SCH) INH (18:17)
[2017-10-02 18:19] LABS: CHLORIDE 105 MEQ/L (98-107); SODIUM (NA) 137 MEQ/L (136-145)
[2017-10-02 18:22] LABS: ALBUMIN 3.5 GM/DL (3.4-5.0); CALCIUM 8.8 MG/DL (8.5-10.1)
[2017-10-02 18:23] LABS: BICARBONATE 28.6 MEQ/L (21.0-32.0); BLOOD UREA NITROGEN 10 MG/DL (7-18); GLUCOSE,RANDOM 88 MG/DL (74-106)
[2017-10-02 18:26] LABS: ALT (GPT) 39 U/L (10-53); AST (GOT) 47 U/L (15-37); CREATININE 0.83 MG/DL (0.50-1.00); GLOMERULAR FILTRATION RATE 72 ML/MIN (>89)
[2017-10-02 18:27] LABS: TOTAL BILIRUBIN ADULT 0.2 MG/DL (0.2-1.0); TOTAL PROTEIN 8.6 GM/DL (6.4-8.2)
[2017-10-02 18:28] LABS: ALKALINE PHOSPHATASE 144 U/L (45-117)
[2017-10-02 18:29] VITALS: BP 121/78; PULSE 85; RESP 18; O2SAT 97
[2017-10-02] MEDS ORDERED: AZTREONAM INJ 2,000 MG in SODIUM CHLORIDE 0.9% INJ 100 ML IV ONE (18:30)
[2017-10-02 18:40] LABS: OVALOCYTES 1+ (NORMAL)
--- NOTE | 2017-10-02 18:46 | RADRPT ---
EXAM DATE/TIME: 10/02/2017 18:11 [place] COMPARISON: CHEST SINGLE AP, September 21, 2016, 16:18. CT THORAX W/O CONTRAST, September 19, 2016, 17:06. CHEST PA & L AT, November 14, 2015, 19:09. INDICATIONS : Cough, shortness of breath for 1 month MEDICAL HISTORY : Chronic obstructive pulmonary disease. Rheumatoid arthritis. Asthma SURGICAL HISTORY : None. ENCOUNTER: Initial ACUITY: 1 month PAIN SCORE: 5/10 LOCATION: Left chest FINDINGS: The heart size is normal. This increased density seen in the left perihilar region extending into the left upper lobe. There some minimal increased density in the right perihilar region. The lungs are h yperinflated. Significant effusions are not seen. CONCLUSION: All areas of consolidation, atelectasis or scarring in the perihilar regions being more prominent on the left. Sunil Dong MD on October 02, 2017 at 18:42 Board Certified Radiologist. This report was verified electronically.
[2017-10-02 19:18] VITALS: BP 147/73; PULSE 83; RESP 18; TEMP 98.2; O2SAT 96
[2017-10-02 19:44] VITALS: BP 127/78; PULSE 71; RESP 16; O2SAT 94
[2017-10-02 20:00] VITALS: BP 127/68; PULSE 70; RESP 18; TEMP 98.4; O2SAT 97
[2017-10-02] MEDS ORDERED: BISACODYL 10 MG SUPP RECTAL PRN (20:30)
[2017-10-02] MEDS ORDERED: SODIUM CHLORIDE 0.9% FLUSH 10 ML FLUSH IV FLUSH PRN (20:30)
[2017-10-02] MEDS ORDERED: SENNOSIDES 8.6 MG TAB PO PRN (20:30)
[2017-10-02] MEDS ORDERED: LACTULOSE SYRUP 20 GM/30 ML CUP PO PRN (20:30)
[2017-10-02] MEDS ORDERED: ONDANSETRON HCL 4 MG/2 ML VIAL IVP PRN (20:30)
[2017-10-02] MEDS ORDERED: ACETAMINOPHEN 325 MG TAB PO PRN (20:30)
[2017-10-02] MEDS ORDERED: MAGNESIUM HYDROXIDE SUSP 30 ML CUP PO PRN (20:30)
[2017-10-02] MEDS ORDERED: ALBUTEROL SULFATE 90 MCG/ACT HFA 8 GM INHALER INH PRN (20:30)
[2017-10-02] MEDS ORDERED: NALOXONE HCL 0.4 MG/ML AMP IV PUSH PRN (20:30)
--- NOTE | 2017-10-02 20:32 | HHI.HP ---
HPI Service [facility] Hospitalists Primary Care Physician Clementine Montgomery MD Admission Diagnosis pseudomonas pneumonia Chief Complaint: recent dx pneumonia on outpatient treatment and no better Travel History International Travel<30 Days: No Contact w/Intl Traveler <30 Da: No Traveled to Known Affected Are: No History of Present Illness This patient presents with cough and tightness in her chest. She reports that she had a bronchoscopy done on August 23 because of bronchiectasis and "shadows" on her CT. She went to the doctor last week and got the results of the bronchoscopy. Cultures were positive for Pseudomonas. She was placed on Cipro. She has been on Cipro for 5 days but states that she is getting worse rather than better. She admits that she has a nebulizer machine at home but has not been using it. She also has an inhaler and used it last yesterday. She takes Brio regularly and has been compliant with that. She states that she had a fever last week but has not been running a fever this week. No modifying factors. Symptoms are mild. In er had chest xray consistent with bilateral infiltrates and is known to have multiple drug allergies will start on azectam and will get pulmonary and ID to consult. Review of Systems Respiratory: COMPLAINS OF: Cough, Wheezing, Shortness of breath Cardiovascular: COMPLAINS OF: Chest pain Past Family Social History Past Medical History sepsis,bronchiectasis pneumonia,anemia Rh A depression Past Surgical History sinus surgery recent bronchoscopy appendix Reported Medications Cipro (Ciprofloxacin HCl) 500 Mg Tab 500 Mg PO BID Breo Ellipta Inh (Fluticasone/Vilanterol) 100-25 Mcg/Act Inh 1 Puff INH DAILY Use daily at the same time. Albuterol Neb (Albuterol Sulfate) 2.5 Mg/0.5 Ml Neb 2.5 Mg NEB BID Note: The Albuterol Sulfate Inhalation Solution is concentrated and must be diluted. Read complete instructions carefully before using. Ventolin Hfa 18 GM Inh (Albuterol Sulfate) 90 Mcg/Act Aer 2 Puff INH Q4H PRN Flonase Nasal [place] (Fluticasone Nasal [place]) 50 Mcg/Act [place] 50 Mcg EACH NARE BID Effexor XR 24 HR (Venlafaxine HCl) 150 Mg Cap 150 Mg PO DAILY Allergies: Coded Allergies: Sulfa (Sulfonamide Antibiotics) (Unverified Allergy, Severe, Anaphylaxis, 10/02/17) aspirin (Unverified Allergy, Severe, shock, 10/02/17) cefepime (Unverified Allergy, Severe, Anaphylaxis, 10/02/17) ceftaroline fosamil (Unverified Allergy, Severe, Anaphylaxis, 10/02/17) erythromycin base (Unverified Allergy, Severe, Anaphylaxis, 10/02/17) penicillin G (Unverified Allergy, Severe, Anaphylaxis, 10/02/17) *MDRO Multi-Drug Resistant Organism (Verified Adverse Reaction, Unknown, ) MRSA (sputum)-09/20/16 Uncoded Allergies: NSAIDS (Allergy, Severe, Anaphylaxis, 08/09/12) Social History NS,ND Physical Exam Vital Signs Vital Signs Date Time Temp Pulse Resp B/P (MAP) Pulse Ox O2 Delivery O2 Flow Rate FiO2 10/02/17 19:44 71 16 127/78 (94) 94 Room Air 10/02/17 19:18 98.2 83 18 147/73 (97) 96 Room Air 10/02/17 18:29 85 18 121/78 (92) 97 Aerosol Mask 10/02/17 17:15 98.7 82 16 144/84 (104) 97 Physical Exam GENERAL: This is a well-nourished, well-developed patient, in no apparent distress. SKIN: No rashes, ecchymoses or lesions. Cool and dry. HEAD: Atraumatic. Normocephalic. No temporal or scalp tenderness. EYES: Pupils equal round and reactive. Extraocular motions intact. No scleral icterus. No injection or drainage. ENT: Nose without bleeding, purulent drainage or septal hematoma. Throat without erythema, tonsillar hypertrophy or exudate. Uvula midline. Airway patent. NECK: Trachea midline. No JVD or lymphadenopathy. Supple, nontender, no meningeal signs. CARDIOVASCULAR: Regular rate and rhythm without murmurs, gallops, or rubs. RESPIRATORY: Bileral decrease breath sounds with rhonchi GASTROINTESTINAL: Abdomen soft, non-tender, nondistended. No hepato-splenomegaly , or palpable masses. No guarding. MUSCULOSKELETAL: Extremities without clubbing, cyanosis, or edema. No joint tenderness, effusion, or edema noted. No calf tenderness. Negative Homans sign bilaterally. NEUROLOGICAL: Awake and alert. Cranial nerves II through XII intact. Motor and sensory grossly within normal limits. Five out of 5 muscle strength in all muscle groups. Normal speech. Laboratory Laboratory Tests Test 10/02/17 17:50 10/02/17 17:59 White Blood Count 8.2 Red Blood Count 4.65 Hemoglobin 11.5 Hematocrit 35.8 Mean Corpuscular Volume 76.9 Mean Corpuscular Hemoglobin 24.8 Mean Corpuscular Hemoglobin Concent 32.3 Red Cell Distribution Width 19.1 Platelet Count 424 Mean Platelet Volume 7.4 Neutrophils (%) (Auto) 54.4 Lymphocytes (%) (Auto) 25.4 Monocytes (%) (Auto) 3.9 Eosinophils (%) (Auto) 13.8 Basophils (%) (Auto) 2.5 Neutrophils # (Auto) 4.5 Lymphocytes # (Auto) 2.1 Monocytes # (Auto) 0.3 Eosinophils # (Auto) 1.1 Basophils # (Auto) 0.2 CBC Comment AUTO DIFF Differential Comment AUTO DIFF CONFIRMED Ovalocytes 1+ Blood Urea Nitrogen 10 Creatinine 0.83 Random Glucose 88 Total Protein 8.6 Albumin 3.5 Calcium Level 8.8 Alkaline Phosphatase 144 Aspartate Amino Transf (AST/SGOT) 47 Alanine Aminotransferase (ALT/SGPT) 39 Total Bilirubin 0.2 Sodium Level 137 Potassium Level 4.2 Chloride Level 105 Carbon Dioxide Level 28.6 Anion Gap 3 Estimat Glomerular Filtration Rate 72 Lactic Acid Level 0.8 Date/Time Source Procedure Growth Status 10/02/17 17:59 Blood Peripheral Aerobic Blood Culture Pending Received 10/02/17 17:59 Blood Peripheral Anaerobic Blood Culture Pending Received Result Diagram: 10/02/17 1750 10/02/17 1750 Imaging Last 24 hours Impressions Chest X-Ray 10/02/17 1745 Signed Impressions: Service Date/Time: Monday, October 02, 2017 18:11 - CONCLUSION: All areas of consolidation, atelectasis or scarring in the perihilar regions being more prominent on the left. Sunil Dong MD Course start on antibiotics Capmilo VTE Risk Assessment Caprini VTE Risk Assessment: Mod/High Risk (score >= 2) Caprini Risk Assessment Model Point Value = 1 Point Value = 2 Point Value = 3 Point Value = 5 Age 41-60 Minor surgery BMI > 25 kg/m2 Swollen legs Varicose veins or History of unexplained or recurrent spontaneous Oral contraceptives or hormone replacement Sepsis (< 1 month) Serious lung disease, including pneumonia (< 1 month) Abnormal pulmonary function Acute myocardial infarction Congestive heart failure (< 1 month) History of inflammatory bowel disease Medical patient at bed rest Age 61-74 Arthroscopic surgery Major open surgery (> 45 min) Laparoscopic surgery (> 45 min) Malignancy Confined to bed (> 72 hours) Immobilizing plaster cast Central venous access Age >= 75 History of VTE Family history of VTE Factor V Leiden Prothrombin [id number] Lupus anticoagulant Anticardiolipin antibodies Elevated serum homocysteine Heparin-induced thrombocytopenia Other congenital or acquired thrombophilia Stroke (< 1 month) Elective arthroplasty Hip, pelvis, or leg fracture Acute spinal cord injury (< 1 month) Prophylaxis Regimen Total Risk Factor Score Risk Level Prophylaxis Regimen 0-1 Low Early ambulation 2 Moderate Order ONE of the following: *Sequential Compression Device (SCD) *Heparin 5000 units SQ BID 3-4 Higher Order ONE of the following medications: *Heparin 5000 units SQ TID *Enoxaparin/Lovenox 40 mg SQ daily (WT < 150 kg, CrCl > 30 mL/min) *Enoxaparin/Lovenox 30 mg SQ daily (WT < 150 kg, CrCl > 10-29 mL/min) *Enoxaparin/Lovenox 30 mg SQ BID (WT < 150 kg, CrCl > 30 mL/min) AND/OR *Sequential Compression Device (SCD) 5 or more Highest Order ONE of the following medications: *Heparin 5000 units SQ TID (Preferred with Epidurals) *Enoxaparin/Lovenox 40 mg SQ daily (WT < 150 kg, CrCl > 30 mL/min) *Enoxaparin/Lovenox 30 mg SQ daily (WT < 150 kg, CrCl > 10-29 mL/min) *Enoxaparin/Lovenox 30 mg SQ BID (WT < 150 kg, CrCl > 30 mL/min) AND *Sequential Compression Device (SCD) Assessment and Plan Problem List: (1) Bronchiectasis ICD Codes: J47.9 - Bronchiectasis, uncomplicated Status: Chronic Plan: continue azactam consult pulmonary and ID (2) Pneumonia of both lungs due to Pseudomonas species ICD Codes: J15.1 - Pneumonia due to Pseudomonas Status: Acute Plan: as above continue azactam and consult pulmonary and ID (3) Rheumatoid arthritis ICD Codes: M06.9 - Rheumatoid arthritis, unspecified Status: Chronic Plan: hx RA was treated with gold in past and on no current treatment Assessment and Plan further plan as case develops Code Status full Discussed Condition With patient Physician Certification 2 Midnight Certification Type: Admission for Inpatient Services Order for Inpatient Services The services are ordered in accordance with Medicare regulations or non- Medicare payer requirements, as applicable. In the case of services not specified as inpatient-only, they are appropriately provided as inpatient services in accordance with the 2-midnight benchmark. Estimated LOS (days): 3 3 days is the estimated time the patient will need to remain in the hospital, assuming treatment plan goals are met and no additional complications. Post-Hospital Plan: Not yet determined Problem Qualifiers (1) Bronchiectasis: Qualified Codes: J47.0 - Bronchiectasis with acute lower respiratory infection (2) Pneumonia of both lungs due to Pseudomonas species: Qualified Codes: J15.1 - Pneumonia due to Pseudomonas Gary Zurita MD Oct 02, 2017 20:32
[2017-10-02] MEDS: DOCUSATE SODIUM 50 MG/SENNA 8.6 MG TAB PO SCH (21:00)
[2017-10-02 21:25] VITALS: O2SAT 97
[2017-10-02] MEDS ORDERED: RESP: ALBUTEROL CONC 2.5 MG/0.5 ML NEB NEB SCH (22:00)
[2017-10-02] MEDS: TEMAZEPAM 15 MG CAP PO PRN (22:22)
[2017-10-02] MEDS: SODIUM CHLORIDE 0.9% FLUSH 10 ML FLUSH IV FLUSH SCH (22:22)
[2017-10-02] MEDS: RESP: ACETYLCYSTEINE 20% 10 ML NEB NEB SCH (23:22)
[2017-10-03] VITALS (9 sets, daily range): BP systolic 101–139; BP diastolic 61–78; PULSE 67–80; RESP 16–20; TEMP 96–98; O2SAT 96–99
[2017-10-03] MEDS: AZTREONAM INJ 2,000 MG in SODIUM CHLORIDE 0.9% INJ 100 ML IV SCH ×3 (00:46→18:48)
[2017-10-03] MEDS: RESP: ALBUTEROL 2.5 MG/3 ML NEB (SCH) INH ×4 (04:00→21:25)
[2017-10-03] MEDS: RESP: ACETYLCYSTEINE 20% 10 ML NEB NEB SCH ×4 (04:00→21:25)
[2017-10-03] MEDS: DOCUSATE SODIUM 50 MG/SENNA 8.6 MG TAB PO SCH ×2 (08:19→21:08)
[2017-10-03] MEDS: VENLAFAXINE HCL XR 75 MG CAP PO SCH (08:19)
[2017-10-03] MEDS: SODIUM CHLORIDE 0.9% FLUSH 10 ML FLUSH IV FLUSH SCH ×2 (08:19→21:08)
[2017-10-03] MEDS: FLUTICASONE PROPIONATE 50 MCG/ACT 16 GM NASAL SPRAY EACH NARE SCH ×2 (08:24→21:08)
[2017-10-03] MEDS: FLUTICASONE 100 MCG/VILANTEROL 25 MCG INHALER INH SCH (08:25)
--- NOTE | 2017-10-03 09:58 | MB ---
cc: Archie Fontaine MD DATE: 10/02/2017 REQUESTING PHYSICIAN: Dr. Zurita REASON FOR CONSULTATION: Pneumonia. HISTORY OF PRESENT ILLNESS: Ms. Brian is a 52-year-old white female with longstanding history of bronchiectasis, multiple infections in her chest. The patient was seen by Dr. Annette Robert and she had a bronchoscopy done which was pseudomonas infection. She saw Dr. Robert, was started on ciprofloxacin. She did not get better and was having congestion in her chest, not able to bring up any phlegm and low grade fever and she was advised to come to the emergency room. She had workup done. Her chest x-ray shows consolidation, atelectasis, scar in the perihilar regions, more prominent on the left. Her CBC showed WBC count 8.3, hemoglobin 11.5, hematocrit 35.8, MCV 79, platelet count 424. Her sodium 137, potassium 4.2, chloride 105, CO2 28, BUN 10, creatinine 0.83. PAST MEDICAL HISTORY: Significant for a longstanding history of bronchiectasis. She has multiple infections in her chest, history of pneumonia, asthma, history of anxiety and depression, rheumatoid arthritis. MEDICATIONS: She is currently taking Breo Ellipta, effexor 150 mg a day, Flonase nasal spray, aztreonam 2 gm q. 8 hours, albuterol nebulizer treatment, temazepam 15 mg at night time. ALLERGIES: SHE IS ALLERGIC TO NSAIDS, SULFA, ASPIRIN, CEFTAROLINE, ERYTHROMYCIN, PENICILLIN. SOCIAL HISTORY: She has no history of any smoking or alcohol abuse. 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 FAMILY HISTORY: She has 3 children by and 2 by marriage. REVIEW OF SYSTEMS: She has lost some weight. No DVT or pulmonary embolism. No seizure, stroke or epilepsy. . PHYSICAL EXAMINATION: GENERAL: Thin built, pleasant female, not in acute distress. VITAL SIGNS: Blood pressure 127/68, heart rate 70, respirations 18, temperature 98.4. HEENT: Pupils are equal and reactive to light. Oral mucosa and nasal mucosa normal. NECK: Supple. JVD not raised. LUNGS: Equal air entry bilateral. Has rhonchi. CARDIOVASCULAR: S1, S2 normal. ABDOMEN: Benign. EXTREMITIES: No edema. IMPRESSION: 1. Bronchiectasis. 2. Pseudomonas pneumonia. 3. Bronchial asthma. 4. Rheumatoid arthritis. PLAN: Discussed with the patient and her . Will give her antibiotic aztreonam. Check the sensitivity of her pseudomonas infection. Will also Continue albuterol and Atrovent. I will start her on acapella and start her Mucomyst nebulizer treatment. She uses a percussion vest at home. Further treatment will depend on the course in the hospital. Thank you Dr. Zurita for this consult. Archie Fontaine MD ADA/rt , 10:09 PM , 10:36 PM MTDAria
--- NOTE | 2017-10-03 11:23 | HHI.PR ---
Subjective Remarks Patient admitted with pseudomona pneumonia based on brochoscopy results on azactam will continue Objective Vitals GENERAL: SKIN: Warm and dry. HEAD: Atraumatic. Normocephalic. EYES: Pupils equal and round. No scleral icterus. No injection or drainage. ENT: No nasal bleeding or discharge. Mucous membranes pink and moist. NECK: Trachea midline. No JVD. CARDIOVASCULAR: Regular rate and rhythm. RESPIRATORY: No accessory muscle use. some improvement in air movement still with rhonchi but improved GASTROINTESTINAL: Abdomen soft, non-tender, nondistended. Hepatic and splenic margins not palpable. MUSCULOSKELETAL: Extremities without clubbing, cyanosis, or edema. No obvious deformities. NEUROLOGICAL: Awake and alert. No obvious cranial nerve deficits. Motor grossly within normal limits. Five out of 5 muscle strength in the arms and legs. Normal speech. PSYCHIATRIC: Appropriate mood and affect; insight and judgment normal. Vital Signs Date Time Temp Pulse Resp B/P (MAP) Pulse Ox O2 Delivery O2 Flow Rate FiO2 10/03/17 09:53 97 21 10/03/17 08:00 97.9 75 16 116/69 (85) 97 10/03/17 04:00 97.9 75 16 101/61 (74) 96 10/03/17 00:00 97.0 80 18 116/62 (80) 96 10/02/17 21:25 97 21 10/02/17 20:35 10/02/17 20:00 98.4 70 18 127/68 (87) 97 10/02/17 19:44 71 16 127/78 (94) 94 Room Air 10/02/17 19:18 98.2 83 18 147/73 (97) 96 Room Air 10/02/17 18:29 85 18 121/78 (92) 97 Aerosol Mask 10/02/17 17:15 98.7 82 16 144/84 (104) 97 Result Diagram: 10/02/17 1750 10/02/17 1750 Imaging Last 24 hours Impressions Chest X-Ray 10/02/17 1745 Signed Impressions: Service Date/Time: Monday, October 02, 2017 18:11 - CONCLUSION: All areas of consolidation, atelectasis or scarring in the perihilar regions being more prominent on the left. Sunil Dong MD A/P Problem List: (1) Bronchiectasis ICD Codes: J47.9 - Bronchiectasis, uncomplicated Status: Chronic Plan: continue azactam consult pulmonary and ID (2) Pneumonia of both lungs due to Pseudomonas species ICD Codes: J15.1 - Pneumonia due to Pseudomonas Status: Acute Plan: as above continue azactam and consult pulmonary and ID (3) Rheumatoid arthritis ICD Codes: M06.9 - Rheumatoid arthritis, unspecified Status: Chronic Plan: hx RA was treated with gold in past and on no current treatment Assessment and Plan pulmonary added mucomist Problem Qualifiers (1) Bronchiectasis: Qualified Codes: J47.0 - Bronchiectasis with acute lower respiratory infection (2) Pneumonia of both lungs due to Pseudomonas species: Qualified Codes: J15.1 - Pneumonia due to Pseudomonas Gary Zurita MD Oct 03, 2017 11:23
--- NOTE | 2017-10-03 18:27 | HHI.PR ---
Addendum to Inpatient Note Additional Information pt seen and examined, full note to follow Emilee Hatfield MD Oct 03, 2017 18:27
--- NOTE | 2017-10-03 18:27 | PD.ID.CON ---
History of Present Illness Service ID Consult Requested By Dr Zurita Reason for Consult PNA, PSAE Primary Care Physician Clementine Montgomery MD Diagnoses: History of Present Illness 52 female with h/o bronchiectasis has h/o recurrent PNA. LAst year MRSA PNA 2-3 weeks ago she developped PNA and has bronchoscopy done in [facility] She apparently grew out PSAE and was started on cipro She did not improved Admitted to the h[facility]ospital , started on azactam + cough, not m,uch expectoration Blood clx negative H/o anaphilactic reaction to cephalosporin Review of Systems Except as stated in HPI: all other systems reviewed are Neg Past Family Social History Allergies: Coded Allergies: Sulfa (Sulfonamide Antibiotics) (Unverified Allergy, Severe, Anaphylaxis, 10/02/17) aspirin (Unverified Allergy, Severe, shock, 10/02/17) cefepime (Unverified Allergy, Severe, Anaphylaxis, 10/02/17) ceftaroline fosamil (Unverified Allergy, Severe, Anaphylaxis, 10/02/17) erythromycin base (Unverified Allergy, Severe, Anaphylaxis, 10/02/17) penicillin G (Unverified Allergy, Severe, Anaphylaxis, 10/02/17) *MDRO Multi-Drug Resistant Organism (Verified Adverse Reaction, Unknown, ) MRSA (sputum)-09/20/16 Uncoded Allergies: NSAIDS (Allergy, Severe, Anaphylaxis, 08/09/12) Active Ordered Medications Medications where reviewed in EMR Antibiotics Include: azactam Physical Exam Vital Signs Vital Signs Date Time Temp Pulse Resp B/P (MAP) Pulse Ox O2 Delivery O2 Flow Rate FiO2 10/03/17 16:00 96.6 79 16 122/75 (91) 97 10/03/17 15:47 98 21 10/03/17 12:00 98.0 80 16 127/76 (93) 97 10/03/17 09:53 97 21 10/03/17 08:00 97.9 75 16 116/69 (85) 97 10/03/17 04:00 97.9 75 16 101/61 (74) 96 10/03/17 00:00 97.0 80 18 116/62 (80) 96 10/02/17 21:25 97 21 10/02/17 20:35 10/02/17 20:00 98.4 70 18 127/68 (87) 97 10/02/17 19:44 71 16 127/78 (94) 94 Room Air 10/02/17 19:18 98.2 83 18 147/73 (97) 96 Room Air 10/02/17 18:29 85 18 121/78 (92) 97 Aerosol Mask Physical Exam CONSTITUTIONAL/GENERAL: This is an adequately nourished patient, in no apparent distress. TUBES/LINES/DRAINS: SKIN: No jaundice, rashes, or lesions. Ecchymoses on upper extremities. No wounds seen anteriorly. Skin temperature appropriate. Not diaphoretic. HEAD: Atraumatic. Normocephalic. EYES: Pupils equal and round and reactive. Extraocular motions intact. No scleral icterus. No injection or drainage. Fundi not examined. ENT: Hearing grossly normal. Nose without bleeding or purulent drainage. Throat without visible erythema, exudates, masses, or lesions. NECK: Trachea midline. Supple, nontender. No palpable thyroid enlargement or nodularity. CARDIOVASCULAR: Regular rate and rhythm without murmurs, gallops, or rubs. No JVD. Peripheral pulses symmetric. RESPIRATORY/CHEST: Symmetric, unlabored respirations. 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 Breath sounds equal bilaterally. No wheezes, rales, or rhonchi. GASTROINTESTINAL: Abdomen soft, non-tender, nondistended. No hepato-splenomegaly , or palpable masses. No guarding. Bowel sounds present. MUSCULOSKELETAL: Extremities without clubbing, cyanosis, or edema. No joint tenderness or effusion noted. No calf tenderness. No mottling or clubbing. LYMPHATICS: No palpable cervical or supraclavicular adenopathy. NEUROLOGICAL: Awake and alert. Motor and sensory grossly within normal limits. Follows commands. Cognitively sharp. Moves all extremities. PSYCHIATRIC: No obvious anxiety/depression. no apparent hallucinations or other psychotic thought process. Laboratory Date/Time Source Procedure Growth Status 10/02/17 17:59 Blood Peripheral Aerobic Blood Culture - Preliminary NO GROWTH IN 1 DAY Resulted 10/02/17 17:59 Blood Peripheral Anaerobic Blood Culture - Preliminary NO GROWTH IN 1 DAY Resulted Result Diagram: 10/02/17 1756 10/02/17 1750 Imaging Last Impressions Chest X-Ray 10/02/17 1745 Signed Impressions: Service Date/Time: Monday, October 02, 2017 18:11 - CONCLUSION: All areas of consolidation, atelectasis or scarring in the perihilar regions being more prominent on the left. Sunil Dong MD Assessment and Plan Assessment and Plan PSAE PNA failed cipro Cefalosporin allergies cont azactam will get report from [facility] Discussed Condition With pt, @ b/s Emilee Hatfield MD Oct 03, 2017 18:26
--- NOTE | 2017-10-03 20:41 | HHI.PR ---
Subjective Remarks 52 YOWF with Bronchiectesis, Pseudomonas inf on recent bronch Breathing better no Fever Uses Acapella minimal sp Objective Vital Signs Vital Signs Date Time Temp Pulse Resp B/P (MAP) Pulse Ox O2 Delivery O2 Flow Rate FiO2 10/03/17 16:00 96.6 79 16 122/75 (91) 97 10/03/17 15:47 98 21 10/03/17 12:00 98.0 80 16 127/76 (93) 97 10/03/17 09:53 97 21 10/03/17 08:00 97.9 75 16 116/69 (85) 97 10/03/17 04:00 97.9 75 16 101/61 (74) 96 10/03/17 00:00 97.0 80 18 116/62 (80) 96 10/02/17 21:25 97 21 I/O 10/02/17 10/02/17 10/02/17 10/03/17 10/03/17 10/03/17 07:00 15:00 23:00 07:00 15:00 23:00 Intake Total 100 ml 100 ml 620 ml Balance 100 ml 100 ml 620 ml Intake Oral 620 ml IV Total 100 ml 100 ml # Voids 2 3 Result Diagram: 10/02/17174910/02/171749 Objective Remarks GENERAL: MBMN WF, NAD SKIN: Warm and dry. HEAD: Normocephalic. EYES: No scleral icterus. No injection or drainage. NECK: Supple, trachea midline. No JVD or lymphadenopathy. CARDIOVASCULAR: Regular rate and rhythm without murmurs, gallops, or rubs. RESPIRATORY: Breath sounds equal bilaterally. No accessory muscle use. Bilat squeeks and rhonchi GASTROINTESTINAL: Abdomen soft, non-tender, nondistended. MUSCULOSKELETAL: No cyanosis, or edema. BACK: Nontender without obvious deformity. No CVA tenderness. A/P Assessment and Plan IMPRESSION: 1. Bronchiectasis. 2. Pseudomonas pneumonia. 3. Bronchial asthma. 4. Rheumatoid arthritis. PLAN: Aerosol nebs Mucomyst nebs qid Use Acapella Cont Cefepime her will bring Chest percussion vest to use here. Archie Fontaine MD Oct 03, 2017 20:41
[2017-10-03] MEDS: TEMAZEPAM 15 MG CAP PO PRN (22:16)
[2017-10-03] MEDS ORDERED: RESP: ALBUTEROL 2.5 MG/3 ML NEB (SCH) INH (23:15)
[2017-10-04] MEDS: AZTREONAM INJ 2,000 MG in SODIUM CHLORIDE 0.9% INJ 100 ML IV SCH ×3 (01:58→17:29)
[2017-10-04] MEDS: RESP: ACETYLCYSTEINE 20% 10 ML NEB NEB SCH ×4 (03:20→21:25)
[2017-10-04] MEDS: RESP: ALBUTEROL 2.5 MG/3 ML NEB (SCH) INH ×4 (03:20→21:25)
[2017-10-04 06:34] LABS: AUTOMATED NEUTROPHIL # 3.7 TH/MM3 (1.8-7.7); BASOPHIL % 0.7 % (0.0-2.0); EOSINOPHIL # 1.1 TH/MM3 (0-0.4); EOSINOPHIL % 15.4 % (0.0-4.0); HEMATOCRIT 34.8 % (35.0-46.0); HEMOGLOBIN 11.1 GM/DL (11.6-15.3); LYMPH % 26.9 % (9.0-44.0); LYMPHOCYTE # 1.9 TH/MM3 (1.0-4.8); MEAN CELL VOLUME 77.8 FL (80.0-100.0); MEAN CORPUSCULAR HEMOGLOBIN 24.7 PG (27.0-34.0); MEAN CORPUSCULAR HGB CONC 31.8 % (32.0-36.0); MEAN PLATELET VOLUME 7.3 FL (7.0-11.0); MONO % 4.5 % (0.0-8.0); MONOCYTE # 0.3 TH/MM3 (0-0.9); NEUT % 52.5 % (16.0-70.0); PLATELET COUNT 367 TH/MM3 (150-450); RED BLOOD COUNT 4.48 MIL/MM3 (4.00-5.30); RED CELL DISTRIBUTION WIDTH 19.3 % (11.6-17.2)
[2017-10-04 06:39] LABS: CHLORIDE 110 MEQ/L (98-107); SODIUM (NA) 142 MEQ/L (136-145)
[2017-10-04 06:42] LABS: CALCIUM 8.4 MG/DL (8.5-10.1)
[2017-10-04 06:43] LABS: ALBUMIN 3.1 GM/DL (3.4-5.0); BICARBONATE 25.5 MEQ/L (21.0-32.0); BLOOD UREA NITROGEN 11 MG/DL (7-18); GLUCOSE,RANDOM 88 MG/DL (74-106)
[2017-10-04 06:46] LABS: ALT (GPT) 39 U/L (10-53); AST (GOT) 40 U/L (15-37); CREATININE 0.71 MG/DL (0.50-1.00); GLOMERULAR FILTRATION RATE 87 ML/MIN (>89)
[2017-10-04 06:47] LABS: TOTAL BILIRUBIN ADULT 0.3 MG/DL (0.2-1.0); TOTAL PROTEIN 7.6 GM/DL (6.4-8.2)
[2017-10-04 06:48] LABS: ALKALINE PHOSPHATASE 133 U/L (45-117)
[2017-10-04 08:00] VITALS: BP 146/65; PULSE 79; RESP 16; TEMP 98.4; O2SAT 95
[2017-10-04] MEDS: DOCUSATE SODIUM 50 MG/SENNA 8.6 MG TAB PO SCH ×2 (08:23→21:00)
[2017-10-04] MEDS: FLUTICASONE 100 MCG/VILANTEROL 25 MCG INHALER INH SCH (08:23)
[2017-10-04] MEDS: VENLAFAXINE HCL XR 75 MG CAP PO SCH (08:23)
[2017-10-04] MEDS: SODIUM CHLORIDE 0.9% FLUSH 10 ML FLUSH IV FLUSH SCH ×2 (08:24→21:53)
[2017-10-04] MEDS: FLUTICASONE PROPIONATE 50 MCG/ACT 16 GM NASAL SPRAY EACH NARE SCH ×2 (08:28→21:53)
[2017-10-04 09:03] VITALS: O2SAT 98
--- NOTE | 2017-10-04 11:47 | HHI.PR ---
Subjective Remarks Patient feeling a little better Pulmonary and ID has seen patient ,patient will be obtaining bronchoscopy culture results and sending them to ID according to patient she was on cipro and most likely will be resumed as outpatient will recheck chest xray lab work is stable blood c/s no growth Objective Vitals GENERAL: SKIN: Warm and dry. HEAD: Atraumatic. Normocephalic. EYES: Pupils equal and round. No scleral icterus. No injection or drainage. ENT: No nasal bleeding or discharge. Mucous membranes pink and moist. NECK: Trachea midline. No JVD. CARDIOVASCULAR: Regular rate and rhythm. RESPIRATORY: No accessory muscle use. Clear to auscultation. Breath sounds equal bilaterally. GASTROINTESTINAL: Abdomen soft, non-tender, nondistended. Hepatic and splenic margins not palpable. MUSCULOSKELETAL: Extremities without clubbing, cyanosis, or edema. No obvious deformities. NEUROLOGICAL: Awake and alert. No obvious cranial nerve deficits. Motor grossly within normal limits. Five out of 5 muscle strength in the arms and legs. Normal speech. PSYCHIATRIC: Appropriate mood and affect; insight and judgment normal. Vital Signs Date Time Temp Pulse Resp B/P (MAP) Pulse Ox O2 Delivery O2 Flow Rate FiO2 10/04/17 09:03 98 21 10/04/17 08:00 98.4 79 16 146/65 (92) 95 10/03/17 21:26 98 21 10/03/17 20:00 96.0 67 20 139/78 (98) 99 10/03/17 16:00 96.6 79 16 122/75 (91) 97 10/03/17 15:47 98 21 10/03/17 12:00 98.0 80 16 127/76 (93) 97 Result Diagram: 10/04/17 0619 10/04/17 0619 Imaging Last 24 hours Impressions Chest X-Ray 10/02/17 4712 Signed Impressions: Service Date/Time: Monday, October 02, 2017 18:11 - CONCLUSION: All areas of consolidation, atelectasis or scarring in the perihilar regions being more prominent on the left. Sunil Dong MD A/P Problem List: (1) Bronchiectasis ICD Codes: J47.9 - Bronchiectasis, uncomplicated Status: Chronic Plan: continue azactam and meds as per pulmonary (2) Pneumonia of both lungs due to Pseudomonas species ICD Codes: J15.1 - Pneumonia due to Pseudomonas Status: Acute Plan: as above continue azactam (3) Rheumatoid arthritis ICD Codes: M06.9 - Rheumatoid arthritis, unspecified Status: Chronic Plan: hx RA was treated with gold in past and on no current treatment Assessment and Plan pulmonary added mucomist Discharge Planning hopefully home on week end and change to po meds again Problem Qualifiers (1) Bronchiectasis: Qualified Codes: J47.0 - Bronchiectasis with acute lower respiratory infection (2) Pneumonia of both lungs due to Pseudomonas species: Qualified Codes: J15.1 - Pneumonia due to Pseudomonas Gary Zurita MD Oct 04, 2017 11:47
[2017-10-04 12:00] VITALS: BP 128/72; PULSE 81; RESP 16; TEMP 97.1; O2SAT 95
--- NOTE | 2017-10-04 14:06 | RADRPT ---
EXAM DATE/TIME: 10/04/2017 13:37 [place] COMPARISON: CHEST SINGLE AP, September 21, 2016, 16:18. POC ULTRASOUND VASCULAR ACCESS TEAM, September 21, 2016, 19:38. CHEST SINGLE AP, September 18, 2016, 12:40. CHEST PA & LAT, November 14, 2015, 19:09. CHEST PA & LAT, October 02, 2017, 18:11. INDICATIONS : Cough. Evaluate pneumonia MEDICAL HISTORY : None. Chronic obstructive pulmonary disease. Rheumatoid arthritis. Asthma SURGICAL HISTORY : None. ENCOUNTER: Subsequent ACUITY: 1 month PAIN SCORE: 5/10 LOCATION: chest FINDINGS: PA and lateral views of the chest were obtained and again demonstrate streaky perihilar infiltrate ex tending out into the upper lobes and perihilar regions. This does not appear significantly changed. T he heart size remains within normal limits. There is no effusion. The bony thorax is intact. CONCLUSION: Bilateral streaky infiltrates again noted without significant change. Agustín Fitzpatrick MD on October 04, 2017 at 14:02 Board Certified Radiologist. This report was verified electronically.
[2017-10-04 16:00] VITALS: BP 138/80; PULSE 78; RESP 18; TEMP 97.4; O2SAT 95
--- NOTE | 2017-10-04 17:24 | HHI.PR ---
Subjective Remarks 52 YOWF with Bronchiectesis, Pseudomonas inf on recent bronch Breathing better no Fever Uses Acapella minimal sp Feels comfortable Ambulates Objective Vital Signs Vital Signs Date Time Temp Pulse Resp B/P (MAP) Pulse Ox O2 Delivery O2 Flow Rate FiO2 10/04/17 12:00 97.1 81 16 128/72 (90) 95 10/04/17 09:03 98 21 10/04/17 08:00 98.4 79 16 146/65 (92) 95 10/03/17 21:26 98 21 10/03/17 20:00 96.0 67 20 139/78 (98) 99 I/O 10/03/17 10/03/17 10/03/17 10/04/17 10/04/17 10/04/17 07:00 15:00 23:00 07:00 15:00 23:00 Intake Total 100 ml 1140 ml 100 ml Balance 100 ml 1140 ml 100 ml Intake Oral 1040 ml IV Total 100 ml 100 ml 100 ml # Voids 2 6 # Bowel Movements 1 Result Diagram: 10/04/1761810/04/17618 Objective Remarks GENERAL: MBMN WF, NAD SKIN: Warm and dry. HEAD: Normocephalic. EYES: No scleral icterus. No injection or drainage. NECK: Supple, trachea midline. No JVD or lymphadenopathy. CARDIOVASCULAR: Regular rate and rhythm without murmurs, gallops, or rubs. RESPIRATORY: Breath sounds equal bilaterally. No accessory muscle use. Bilat squeeks and rhonchi GASTROINTESTINAL: Abdomen soft, non-tender, nondistended. MUSCULOSKELETAL: No cyanosis, or edema. BACK: Nontender without obvious deformity. No CVA tenderness. A/P Assessment and Plan IMPRESSION: 1. Bronchiectasis. 2. Pseudomonas pneumonia. 3. Bronchial asthma. 4. Rheumatoid arthritis. PLAN: Aerosol nebs Mucomyst nebs qid Use Acapella Abx per ID her will bring Chest percussion vest to use here. Stable from pulm standpoint Available prn over weekend. Archie Fontaine MD Oct 04, 2017 17:24
[2017-10-04 20:00] VITALS: BP 132/70; PULSE 74; RESP 20; TEMP 96.8; O2SAT 96
[2017-10-04 21:10] VITALS: O2SAT 97
[2017-10-05] VITALS: BP 131/79; PULSE 83; RESP 20; TEMP 96.7; O2SAT 97
[2017-10-05] MEDS: AZTREONAM INJ 2,000 MG in SODIUM CHLORIDE 0.9% INJ 100 ML IV SCH ×2 (02:19→08:53)
[2017-10-05] MEDS: RESP: ALBUTEROL 2.5 MG/3 ML NEB (SCH) INH ×3 (03:11→15:05)
[2017-10-05] MEDS: RESP: ACETYLCYSTEINE 20% 10 ML NEB NEB SCH ×3 (03:11→15:05)
[2017-10-05 08:00] VITALS: BP 141/81; PULSE 92; RESP 20; TEMP 97.2; O2SAT 95
[2017-10-05] MEDS: VENLAFAXINE HCL XR 75 MG CAP PO SCH (08:53)
[2017-10-05] MEDS: FLUTICASONE 100 MCG/VILANTEROL 25 MCG INHALER INH SCH (08:53)
[2017-10-05] MEDS: FLUTICASONE PROPIONATE 50 MCG/ACT 16 GM NASAL SPRAY EACH NARE SCH (08:54)
[2017-10-05] MEDS: SODIUM CHLORIDE 0.9% FLUSH 10 ML FLUSH IV FLUSH SCH (08:54)
[2017-10-05] MEDS: DOCUSATE SODIUM 50 MG/SENNA 8.6 MG TAB PO SCH (08:54)
[2017-10-05 09:09] VITALS: O2SAT 97
[2017-10-05 12:00] VITALS: BP 126/83; PULSE 80; RESP 18; TEMP 97.4; O2SAT 96
--- NOTE | 2017-10-05 12:23 | HHI.PR ---
Subjective Remarks no complaints, breathing better then when she came in. brought in culture reports, not using percussion vest (at home) tolerating mucomyst would like to go home Objective Vitals Vital Signs Date Time Temp Pulse Resp B/P (MAP) Pulse Ox O2 Delivery O2 Flow Rate FiO2 10/05/17 09:09 97 21 10/05/17 08:00 97.2 92 20 141/81 (101) 95 10/05/17 00:00 96.7 83 20 131/79 (96) 97 10/04/17 21:10 97 21 10/04/17 20:00 96.8 74 20 132/70 (90) 96 10/04/17 16:00 97.4 78 18 138/80 (99) 95 10/05/17 10/05/17 10/06/17 15:00 23:00 07:00 Intake Total 400 ml Balance 400 ml Intake Oral 300 ml IV Total 100 ml Result Diagram: 10/04/17 0619 10/04/17 0619 Imaging Last Impressions Chest X-Ray 10/04/17 0000 Signed Impressions: Service Date/Time: Wednesday, October 04, 2017 13:37 - CONCLUSION: Bilateral streaky infiltrates again noted without significant change. Agustín Fitzpatrick MD Last 24 hours Impressions Chest X-Ray 10/02/17 1745 Signed Impressions: Service Date/Time: Monday, October 02, 2017 18:11 - CONCLUSION: All areas of consolidation, atelectasis or scarring in the perihilar regions being more prominent on the left. Sunil Dong MD Objective Remarks Sitting up in bed not on oxygen speaking in full sentences, looks comfortable coarse breath sounds but no wheezing heart rrr not tacchycardic good bowel sounds A/P Problem List: (1) Bronchiectasis ICD Codes: J47.9 - Bronchiectasis, uncomplicated Status: Chronic Plan: continue meds as per pulmonary on mucomyst and more frequent albuterol treatments then home (2) Pneumonia of both lungs due to Pseudomonas species ICD Codes: J15.1 - Pneumonia due to Pseudomonas Status: Acute Plan: cultures grew serratia psuedomionas both sensitive to cipro, the serratia was sensitive to aztreonam it would appear the pseudomonas was not culture was obtained 6 weeks ago clinically patient doing better with current antibiotic treatment and adjustment of pulmonary medications (3) Rheumatoid arthritis ICD Codes: M06.9 - Rheumatoid arthritis, unspecified Status: Chronic Plan: hx RA was treated with gold in past and on no current treatment Assessment and Plan await ID input Discharge Planning hopefully home on week end and change to po meds again Problem Qualifiers (1) Bronchiectasis: Qualified Codes: J47.0 - Bronchiectasis with acute lower respiratory infection (2) Pneumonia of both lungs due to Pseudomonas species: Qualified Codes: J15.1 - Pneumonia due to Pseudomonas Corry Claros MD Oct 05, 2017 12:23
[2017-10-05] MEDS ORDERED: RESP: ALBUTEROL 2.5 MG/3 ML NEB (PRN) NEB (12:30)
[2017-10-05 16:00] VITALS: BP 137/79; PULSE 91; RESP 18; TEMP 97.9; O2SAT 97
--- NOTE | 2017-10-05 16:06 | HHI.PR ---
Addendum to Inpatient Note Additional Information No fever No leukocytosis Last Impressions Chest X-Ray 10/04/17 0000 Signed Impressions: Service Date/Time: Wednesday, October 04, 2017 13:37 - CONCLUSION: Bilateral streaky infiltrates again noted without significant change. Agustín Fitzpatrick MD Sputum clx submitted Dc home on cipro after starting is her on cipro in-pt If tolerates will dc on cipro 750 mg q 12 x 5 days fu with Emilee Lucas Dr, MD Oct 05, 2017 16:06
[2017-10-05] MEDS ORDERED: CIPROFLOXACIN 500 MG TAB PO PRN (16:30)
[2017-10-05] MEDS ORDERED: ALBU.5I NEB (17:47)
[2017-10-05] MEDS ORDERED: MEDR4PAK PO (17:47)
[2017-10-05] MEDS ORDERED: CIPR250T52 PO (17:47)
[2017-10-05] MEDS ORDERED: CIPR750T2 PO (17:52)
[2017-10-05] MEDS ORDERED: CIPROFLOXACIN 250 MG TAB PO ONE (18:00)
[2017-10-05] MEDS ORDERED: RESP: ACETYLCYSTEINE 20% 10 ML NEB NEB SCH (20:00)
[2017-10-05] MEDS ORDERED: CIPROFLOXACIN 500 MG TAB PO SCH (21:00)
== END 2017-10-05 18:52 | disposition home or self-care (01) | DRG 178 ==
LOC: PHED 17:06 → PHEDA 18:44 → PH3A 20:26
PROVIDERS: ADMIT Internal Medicine; ATTEND Internal Medicine
DX: J15.1 Pneumonia due to Pseudomonas (principal); J47.0 Bronchiectasis with acute lower respiratory infection; M06.9 Rheumatoid arthritis, unspecified; Z87.01 Personal history of pneumonia (recurrent); J45.909 Unspecified asthma, uncomplicated; Z88.1 Allergy status to other antibiotic agents
CPT/HCPCS: 71046; 80053; 83605; 85025; 87040; 87070; 87205; 94640; 94664; 94667; 94668; 96374; J7608; J7611; J7613